=== PATIENT | male | born 1980 | race Two or more races ===

== ENCOUNTER 2017-07-16 11:58 | Inpatient (IN) | payer OTHER ==
[2017-07-16 14:29] VITALS: BMI 25.2
--- NOTE | 2017-07-16 19:33 | HP ---
Admission [facility] Chief Complaint: SEEKING REHAB SERVICES Allergies/Adverse Reactions: Allergies Allergy/AdvReac Type Severity Reaction Status Date / Time No Known Drug Allergies Allergy Verified 07/16/17 16:56 haloperidol [From Haldol] AdvReac Severe EXTRA Verified 07/16/17 16:56 PYRAMIDAL REACTION haloperidol lactate AdvReac Severe EXTRA Verified 07/16/17 16:56 [From Haldol] PYRAMIDAL REACTION History of Present Illness: 36 Y.O. MAN WITH A HISTORY AND ALCOHOL AND CRACK-COCAINE DEPENDENCE IS HERE FOR REHAB SERVICES. HE WAS LAST HERE FOR REHAB IN 2014. LONGEST PERIOD OF DRUG AND ALCOHOL ABSTINENCE HAS BEEN 1 YEAR. PT. IS ENROLLED AT [facility] AND [facility] ON 07/15/17 AT 90MG OF METHADONE (DOSE VERIFIED). Exam Limitations: No Limitations - Ebola screening Have you traveled outside of the country in the last 21 days: No Have you had contact with anyone from an Ebola affected area: No Have you been sick,other than usual withdrawal symptoms: No - Review of Systems Constitutional: Chills, Diaphoresis, Loss of Appetite, Changes in sleep, Unintentional Wgt. Loss EENT: reports: Blurred Vision, Tearing, Nose Congestion Respiratory: reports: No Symptoms reported Cardiac: reports: No Symptoms Reported GI: reports: Diarrhea, Nausea, Vomiting : reports: No Symptoms Reported Musculoskeletal: reports: Back Pain, Neck Pain Integumentary: reports: No Symptoms Reported Neuro: reports: Tremors Endocrine: reports: No Symptoms Reported Hematology: reports: No Symptoms Reported Psychiatric: reports: Orientated x3, Agitated, Anxious, Depressed, other (PTSD, SCHIZOPHRENIA) Other Systems: Reviewed and Negative Patient History - Patient Medical History Hx Anemia: No Hx Asthma: No Hx Chronic Obstructive Pulmonary Disease (COPD): No Hx Cancer: No Hx Cardiac Disorders: No Hx Hypertension: No Hx Hypercholesterolemia: No Hx Pacemaker: No HX Cerebrovascular Accident: No Hx Seizures: No Hx Diabetes: No Hx Gastrointestinal Disorders: No Hx Liver Disease: No Hx Genitourinary Disorders: No Hx Sexually Transmitted Disorders: No Hx Renal Disease (ESRD): No Hx Thyroid Disease: No Hx Human Immunodeficiency Virus (HIV): No (neg 5m ago) Hx Hepatitis C: No Hx Depression: Yes Hx Suicide Attempt: No Hx Bipolar Disorder: No Hx Schizophrenia: Yes - Patient Surgical History Past Surgical History: No Hx Neurologic Surgery: No Hx Cataract Extraction: No Hx Cardiac Surgery: No Hx Lung Surgery: No Hx Breast Surgery: No Hx Breast Biopsy: No Hx Abdominal Surgery: No Hx Appendectomy: No Hx Cholecystectomy: No Hx Genitourinary Surgery: No Hx Section: No Hx Orthopedic Surgery: No Anesthesia Reaction: No - PPD History Previous Implant?: Yes Documented Results: Negative w/proof Implanted On Prior [facility] Admission?: Yes Date: 04/17/15 Results: 0 mm PPD to be Administered?: Yes - Reproductive History Patient is a Female of Child Bearing Age (11 -55 yrs old): No - Smoking Cessation Smoking history: Current every day smoker Have you smoked in the past 12 months: Yes Aproximately how many cigarettes per day: 4 Cigars Per Day: 0 Hx Chewing Tobacco Use: No Initiated information on smoking cessation: Yes 'Breaking Loose' booklet given: 07/16/17 - Substance & Tx. History Hx Alcohol Use: Yes Hx Substance Use: Yes Substance Use Type: Alcohol, Cocaine Hx Substance Use Treatment: Yes (REHAB: 2015) - Substances Abused Crack Route: Smoking Frequency: Daily Amount used: $100 Age of first use: 33 Date of Last Use: 07/16/17 Alcohol-beer Route: Oral Frequency: 3-6 times per week Amount used: 1-2 (12 oz.) Age of first use: 16 Date of Last Use: 07/15/17 Family Disease History - Family Disease History Family History: Denies Admission Physical Exam BHS - Vital Signs Vital Signs: Vital Signs - 24 hr 07/16/17 14:27 Temperature 97.7 F Pulse Rate 63 Respiratory 20 Rate Blood Pressure 121/70 - Physical General Appearance: Yes: Irritable, Sweating, Anxious HEENTM: Yes: Hearing grossly Normal, Normal ENT Inspection, Normocephalic, Normal Voice Respiratory: Yes: Chest Non-Tender, Lungs Clear, Normal Breath Sounds, No Respiratory Distress, No Accessory Muscle Use Neck: Yes: No masses,lesions,Nodules, Trachea in good position Breast: Yes: Breast Exam Deferred Cardiology: Yes: Regular Rhythm, Regular Rate Abdominal: Yes: Normal Bowel Sounds, Non Tender, Flat Genitourinary: Yes: Other (NO COMPLAINTS REPORTED) Back: Yes: Normal Inspection Musculoskeletal: Yes: Back pain, Joint Stiffness, Muscle weakness Extremities: Yes: Normal Capillary Refill, Normal Inspection, Normal Range of Motion, Non-Tender Neurological: Yes: Alert, Normal Mood/Affect, Normal Response Integumentary: Yes: Normal Color, Dry, Warm Lymphatic: Yes: Within Normal Limits - Diagnostic (1) Alcohol dependence with uncomplicated withdrawal Current Visit: Yes Status: Chronic (2) Opioid dependence on agonist therapy Current Visit: Yes Status: Chronic (3) Cocaine dependence Current Visit: Yes Status: Chronic (4) Nicotine dependence Current Visit: Yes Status: Chronic (5) Chronic low back pain Current Visit: Yes Status: Chronic Cleared for Admission [facility] - Detox or Rehab [facility] Level of Care: Observation Bed Claeared for Rehab Admission: Yes [facility] Breath Alcohol Content Breath Alcohol Content: 0 Urine Drug Screen - Results Drug Screen Negative: No Urine Drug Screen Results: YE-Cocaine, MTD-Methadone Inpatient Rehab Admission - Initial Determination Are CD services needed?: Yes Free of communicable disease: Yes Not in need of hospitalization: Yes - Rehab Admission Criteria Previous failed treatment: Yes Poor recovery environment: Yes Comorbidities: Yes Lacks judgement: Yes Patient is meeting Inpatient Rehab admission criteria:: Yes
[2017-07-16] MEDS ORDERED: METHADONE HCL 10 MG TABLET PO ONE (19:45)
[2017-07-16] MEDS ORDERED: ACETAMINOPHEN 325 MG TABLET (FP) PO PRN (19:47)
[2017-07-16] MEDS ORDERED: guaiFENesin/D-METHORPHAN HB 10 ML UNIT-DOSE CUPS PO PRN (19:47)
[2017-07-16] MEDS ORDERED: MAGNESIUM HYDROX 2400MG/30ML ORAL SUSPENSION 30 ML CUP PO PRN (19:47)
[2017-07-16] MEDS ORDERED: IBUPROFEN 400 MG TABLET (FP) PO PRN (19:47)
[2017-07-16] MEDS ORDERED: MAGNESIUM CITRATE 300 ML BOTTLE PO PRN (19:47)
[2017-07-16] MEDS ORDERED: P-EPHED 60MG/TRIPROLIDI 2.5MG TABLET PO PRN (19:47)
[2017-07-16] MEDS ORDERED: hydrOXYzine PAMOATE 50 MG CAPSULE (FP) PO PRN (19:47)
[2017-07-16] MEDS ORDERED: MENTHOL/PHENOL 1 EACH UD MM PRN (19:47)
[2017-07-16] MEDS ORDERED: LOPERAMIDE HCL 2 MG CAPSULE PO PRN (19:47)
[2017-07-16] MEDS ORDERED: NICOTINE POLACRILEX 2 MG GUM BC PRN (19:47)
[2017-07-16] MEDS ORDERED: METHADONE 80 MG, METHADONE 10 MG PO ONE (20:00)
[2017-07-16] MEDS ORDERED: METHADONE HCL 10 MG TABLET ONE (20:44)
[2017-07-16] MEDS ORDERED: TUBERCULIN PPD 5 TU/0.1ML VIAL ID ONE (20:44)
[2017-07-16] MEDS ORDERED: METHADONE HCL 40 MG DISPERSABLE TABLET ONE (20:44)
[2017-07-16] MEDS: METHYL SALICYLATE/MENTHOL OINT 30 GM TUBE TP SCH (21:56)
[2017-07-16] MEDS: QUEtiapine FUMARATE 400 MG TABLET PO SCH (21:57)
[2017-07-16] MEDS: MIRTAZAPINE 30 MG TABLET (FP) PO SCH (21:57)
[2017-07-16] MEDS: THIAMINE HCL 100 MG TABLET (FP) PO SCH (21:58)
[2017-07-16 23:23] LABS: URINE APPEARANCE CLEAR; URINE BILIRUBIN NEGATIVE (NEGATIVE); URINE BLOOD NEGATIVE (NEGATIVE); URINE COLOR DKYELLOW; URINE GLUCOSE (UA) NEGATIVE (NEGATIVE); URINE KETONE NEGATIVE (NEGATIVE); URINE NITRITE NEGATIVE (NEGATIVE); URINE PROTEIN NEGATIVE (NEGATIVE); URINE UROBILINOGEN 4.0 E.U/dl mg/dL (0.2-1.0)
[2017-07-16 23:27] LABS: URINE LEUK ESTERASE 1+ (NEGATIVE)
[2017-07-16 23:28] LABS: EPI CELLS RARE /HPF (FEW); URINE MUCUS MANY
[2017-07-17] MEDS ORDERED: METHADONE HCL 40 MG DISPERSABLE TABLET ONE (04:17)
[2017-07-17] MEDS ORDERED: METHADONE HCL 10 MG TABLET ONE (04:17)
[2017-07-17] MEDS ORDERED: METHADONE HCL 10 MG TABLET PO SCH (06:00)
[2017-07-17] MEDS: METHADONE 80 MG, METHADONE 10 MG PO SCH (10:28)
[2017-07-17] MEDS: OLANZapine 7.5 MG TABLET PO SCH (10:29)
[2017-07-17] MEDS: SERTRALINE HCL 50 MG TABLET (FP) PO SCH (10:29)
[2017-07-17] MEDS: PRENATAL VITAMINS W/ FOLIC ACID TABLET (FP) PO SCH (10:29)
[2017-07-17] MEDS: NICOTINE 14 MG/24 HOURS TOPICAL PATCH TD SCH (10:29)
[2017-07-17] MEDS: METHYL SALICYLATE/MENTHOL OINT 30 GM TUBE TP SCH ×2 (10:32→21:27)
--- NOTE | 2017-07-17 12:19 | EKG ---
Test Reason : Blood Pressure : / mmHG Vent. Rate : 057 BPM Atrial Rate : 057 BPM P-R Int : 180 ms QRS Dur : 102 ms QT Int : 440 ms P-R-T Axes : 051 065 052 degrees QTc Int : 428 ms SINUS BRADYCARDIA OTHERWISE NORMAL ECG NO PREVIOUS ECGS AVAILABLE Confirmed by RONALD SANCHEZ MD ([id number]) on 07/17/2017 12:19:45 PM Referred By: Confirmed By:RONALD SANCHEZ MD
[2017-07-17 12:44] LABS: HEMOGLOBIN 12.7 GM/dL (11.7-16.9); MCH 29.7 pg (25.7-33.7); MCHC 32.6 g/dl (32.0-35.9); MEAN CELL VOLUME 91.1 fl (80-96); PLATELET COUNT 281 K/MM3 (134-434); RBC 4.28 M/mm3 (4.00-5.60); RDW 14.4 % (11.9-15.9); WHITE BLOOD COUNT 6.6 K/mm3 (4.0-10.0)
[2017-07-17 13:01] LABS: ALBUMIN 3.1 g/dl (3.4-5.0); ANION GAP 6 (8-16); BILIRUBIN,TOTAL 0.4 mg/dL (0.2-1.0); BLOOD UREA NITROGEN 16 mg/dL (7-18); CALCIUM 7.9 mg/dL (8.5-10.1); CHLORIDE 107 mmol/L (98-107); CO2 29 mmol/L (21-32); CREATININE 1.1 mg/dL (0.7-1.3); GLUCOSE,RANDOM 81 mg/dL (74-106); POTASSIUM 4.2 mmol/L (3.5-5.1); SGOT/AST 15 U/L (15-37); SGPT/ALT 25 U/L (12-78); SODIUM 142 mmol/L (136-145); TOT PROT 6.1 g/dl (6.4-8.2)
[2017-07-17 13:02] LABS: ALK PHOS 43 U/L (45-117)
[2017-07-17] MEDS: MIRTAZAPINE 30 MG TABLET (FP) PO SCH (21:26)
[2017-07-17] MEDS: THIAMINE HCL 100 MG TABLET (FP) PO SCH (21:26)
[2017-07-17] MEDS: QUEtiapine FUMARATE 400 MG TABLET PO SCH (21:27)
[2017-07-18] MEDS ORDERED: METHADONE HCL 10 MG TABLET ONE (04:17)
[2017-07-18] MEDS ORDERED: METHADONE HCL 40 MG DISPERSABLE TABLET ONE (04:18)
[2017-07-18] MEDS: METHADONE 80 MG, METHADONE 10 MG PO SCH (06:12)
[2017-07-18] MEDS: OLANZapine 7.5 MG TABLET PO SCH (10:11)
[2017-07-18] MEDS: NICOTINE 14 MG/24 HOURS TOPICAL PATCH TD SCH (10:11)
[2017-07-18] MEDS: SERTRALINE HCL 50 MG TABLET (FP) PO SCH (10:12)
[2017-07-18] MEDS: PRENATAL VITAMINS W/ FOLIC ACID TABLET (FP) PO SCH (10:12)
[2017-07-18] MEDS: METHYL SALICYLATE/MENTHOL OINT 30 GM TUBE TP SCH ×2 (10:12→22:24)
[2017-07-18] MEDS ORDERED: PT OWN MED DRAWER 7, Y5N ONE (19:27)
[2017-07-18] MEDS: MIRTAZAPINE 30 MG TABLET (FP) PO SCH (22:23)
[2017-07-18] MEDS: THIAMINE HCL 100 MG TABLET (FP) PO SCH (22:24)
[2017-07-18] MEDS: QUEtiapine FUMARATE 400 MG TABLET PO SCH (22:24)
[2017-07-19] MEDS ORDERED: METHADONE HCL 40 MG DISPERSABLE TABLET ONE (04:14)
[2017-07-19] MEDS ORDERED: METHADONE HCL 10 MG TABLET ONE (04:14)
[2017-07-19] MEDS: METHADONE 80 MG, METHADONE 10 MG PO SCH (06:14)
[2017-07-19] MEDS: OLANZapine 7.5 MG TABLET PO SCH (10:18)
[2017-07-19] MEDS: SERTRALINE HCL 50 MG TABLET (FP) PO SCH (10:18)
[2017-07-19] MEDS: PRENATAL VITAMINS W/ FOLIC ACID TABLET (FP) PO SCH (10:18)
[2017-07-19] MEDS: NICOTINE 14 MG/24 HOURS TOPICAL PATCH TD SCH (10:18)
[2017-07-19] MEDS: METHYL SALICYLATE/MENTHOL OINT 30 GM TUBE TP SCH ×2 (10:21→21:32)
--- NOTE | 2017-07-19 14:48 | HP ---
Psychiatrist Admission - Data Date of interview: 07/19/17 Admission source: [facility] Identifying data: Pt. is a 36 year single male, father of three, and on disability. This is patient's second admission to rehab. Pt. admitted to [address] [place] [address] inpatient rehab for opiate and cocaine dependence. Psychiatric History: Pt. reports psychiatric hospitalization at [facility] approximately 4 weeks ago. Diagnosis of paranoid schizophrenia. Pt. is a poor historian. Pt reports getting his psychiatric medications from [facility]. Pt is currently prescribed seroquel 400mg qhs, zyprexa 7.5mg PO daily, Mirtzapine 30mg qhs and zoloft 100mg po daily. Pt. denies h/o suicide attempts. Pt. states that when he decompensates he begins to believe that the cloth carrier are after him and he carries a knife on him. Currently, no paranoia or psychosis noted. Physical/Sexual Abuse/Trauma History: Denies. Vital Signs: Vital Signs - 24 hr 07/19/17 07/19/17 07/19/17 00:30 03:30 07:05 Temperature 98.3 F Pulse Rate 69 Respiratory 16 16 18 Rate Blood Pressure 107/70 Allergies/Adverse Reactions: Allergies Allergy/AdvReac Type Severity Reaction Status Date / Time No Known Drug Allergies Allergy Verified 07/16/17 16:56 haloperidol [From Haldol] AdvReac Severe EXTRA Verified 07/16/17 16:56 PYRAMIDAL REACTION haloperidol lactate AdvReac Severe EXTRA Verified 07/16/17 16:56 [From Haldol] PYRAMIDAL REACTION Date of last physical exam: 07/16/17 Concur with the findings of this exam: Yes - Substance Abuse/Tx History Hx Alcohol Use: Yes Hx Substance Use: Yes Substance Use Type: Cocaine, Heroin Hx Substance Use Treatment: Yes ([facility] rehab at [address]) Mental Status Exam - Mental Status Exam Alert and Oriented to: Time, Place, Person Cognitive Function: Fair Patient Appearance: Well Groomed Mood: Withdrawn Affect: Mood Congruent Patient Behavior: Fatigued Speech Pattern: Delayed Voice Loudness: Moderately Soft/Quiet Thought Process: Goal Oriented Thought Disorder: Not Present Hallucinations: Denies Suicidal Ideation: Denies Homicidal Ideation: Denies Insight/Judgement: Poor Sleep: Well Appetite: Good Muscle strength/Tone: Normal Gait/Station: Normal Psychiatric Findings - Problem List ([place] 1, 2,3) (1) Opiate dependence Current Visit: Yes Status: Acute (2) Cocaine dependence Current Visit: Yes Status: Acute (3) Schizophrenia, paranoid type Current Visit: Yes Status: Chronic - Initial Treatment Plan Initial Treatment Plan: Psychoeducation provided. Rehab in progress. Pt. to continue on current medications of seroquel 400mg qhs, Zyprexa 7.5mg Po daily + and mirtzapine 30mg qhs, and zoloft 100mg PO daily. Benefits and side effects discussed. Verbal consent given. Will continue to monitor.
[2017-07-19] MEDS: LIDOCAINE 5% TOPICAL PATCH TP SCH (15:02)
[2017-07-19] MEDS: THIAMINE HCL 100 MG TABLET (FP) PO SCH (21:30)
[2017-07-19] MEDS: MIRTAZAPINE 30 MG TABLET (FP) PO SCH (21:30)
[2017-07-19] MEDS: QUEtiapine FUMARATE 400 MG TABLET PO SCH (21:31)
[2017-07-19] MEDS: TOLNAFTATE 1% CREAM 15 GM TUBE TP SCH (21:31)
[2017-07-19] MEDS: LIDOCAINE PATCH REMOVAL MC SCH (21:32)
[2017-07-20] MEDS ORDERED: METHADONE HCL 10 MG TABLET ONE (04:28)
[2017-07-20] MEDS ORDERED: METHADONE HCL 40 MG DISPERSABLE TABLET ONE (04:29)
[2017-07-20] MEDS: METHADONE 80 MG, METHADONE 10 MG PO SCH (06:14)
[2017-07-20] MEDS: NICOTINE 14 MG/24 HOURS TOPICAL PATCH TD SCH (10:10)
[2017-07-20] MEDS: PRENATAL VITAMINS W/ FOLIC ACID TABLET (FP) PO SCH (10:10)
[2017-07-20] MEDS: SERTRALINE HCL 50 MG TABLET (FP) PO SCH (10:10)
[2017-07-20] MEDS: OLANZapine 7.5 MG TABLET PO SCH (10:10)
[2017-07-20] MEDS: TOLNAFTATE 1% CREAM 15 GM TUBE TP SCH ×2 (10:11→21:23)
[2017-07-20] MEDS: METHYL SALICYLATE/MENTHOL OINT 30 GM TUBE TP SCH ×2 (10:25→21:22)
[2017-07-20] MEDS: LIDOCAINE 5% TOPICAL PATCH TP SCH (10:26)
[2017-07-20] MEDS: MIRTAZAPINE 30 MG TABLET (FP) PO SCH (21:22)
[2017-07-20] MEDS: LIDOCAINE PATCH REMOVAL MC SCH (21:22)
[2017-07-20] MEDS: THIAMINE HCL 100 MG TABLET (FP) PO SCH (21:22)
[2017-07-20] MEDS: QUEtiapine FUMARATE 400 MG TABLET PO SCH (21:23)
[2017-07-21] MEDS ORDERED: METHADONE HCL 40 MG DISPERSABLE TABLET ONE (03:50)
[2017-07-21] MEDS ORDERED: METHADONE HCL 10 MG TABLET ONE (03:50)
[2017-07-21] MEDS: METHADONE 80 MG, METHADONE 10 MG PO SCH (06:23)
[2017-07-21] MEDS: SERTRALINE HCL 50 MG TABLET (FP) PO SCH (10:32)
[2017-07-21] MEDS: OLANZapine 7.5 MG TABLET PO SCH (10:32)
[2017-07-21] MEDS: PRENATAL VITAMINS W/ FOLIC ACID TABLET (FP) PO SCH (10:33)
[2017-07-21] MEDS: LIDOCAINE 5% TOPICAL PATCH TP SCH (10:33)
[2017-07-21] MEDS: NICOTINE 14 MG/24 HOURS TOPICAL PATCH TD SCH (10:33)
[2017-07-21] MEDS: METHYL SALICYLATE/MENTHOL OINT 30 GM TUBE TP SCH ×2 (10:36→21:44)
[2017-07-21] MEDS: TOLNAFTATE 1% CREAM 15 GM TUBE TP SCH ×2 (10:37→21:43)
--- NOTE | 2017-07-21 15:01 | PN ---
Psychiatric Progress Note Vital Signs: Vital Signs Period Temp Pulse Resp BP Sys/Calloway Pulse Ox Last 24 Hr 98.5 F 70 18-18 101/63 Date of Session: 07/21/17 Chief Complaint:: " i want to take my depakote." HPI: Pt. admitted to [facility] inpatient rehab for alcohol and cocaine dependence. ROS: Unremarkable. Current Medications: Active Medications Generic Name Dose Route Start Last Admin Trade Name Freq PRN Reason Stop Dose Admin Acetaminophen 650 mg 07/16/17 19:47 Tylenol - PO Q4H PRN FEVER Al Hydroxide/Mg Hydroxide 30 ml 07/16/17 19:47 Mylanta Oral Suspension - PO Q6H PRN DYSPEPSIA Eucalyptus/Menthol/Phenol/Sorbitol 1 each 07/16/17 19:47 Cepastat Lozenge - MM Q4H PRN SORE THROAT Guaifenesin 10 ml 07/16/17 19:47 Robitussin Dm - PO Q6H PRN COUGH Hydroxyzine Pamoate 50 mg 07/16/17 19:47 Vistaril - PO Q4H PRN AGITATION Ibuprofen 400 mg 07/16/17 19:47 07/16/17 21:14 Motrin - PO 400 mg Q6H PRN Administration Pain level 4-6 Lidocaine 1 patch 07/19/17 14:30 07/21/17 10:33 Lidoderm Patch - TP 1 patch DAILY KIKE Administration Loperamide HCl 4 mg 07/16/17 19:47 Imodium - PO Q6H PRN DIARRHEA Magnesium Citrate 300 ml 07/16/17 19:47 Citroma - PO Q48H PRN CONSTIPATION Magnesium Hydroxide 30 ml 07/16/17 19:47 Milk Of Magnesia - PO DAILY PRN CONSTIPATION Methadone HCl 80 mg/ Methadone 90 mg 07/17/17 06:00 07/21/17 06:23 HCl 10 mg PO 90 mg DAILY@0600 KIKE Administration Methyl Salicylate 1 applic 07/16/17 22:00 07/21/17 10:36 Reginald-Baker - TP Not Given BID KIKE Mirtazapine 30 mg 07/16/17 22:00 07/20/17 21:22 Remeron - PO 30 mg HS KIKE Administration Miscellaneous 1 each 07/19/17 22:00 07/20/17 21:22 Lidoderm Patch Removal MC 1 each DAILY@2200 KIKE Administration Nicotine 14 mg 07/17/17 10:00 07/21/17 10:33 Nicoderm Patch - TD 14 mg DAILY KIKE Administration Nicotine Polacrilex 2 mg 07/16/17 19:47 Nicorette Gum - BC Q2H PRN NICOTINE REPLACEMENT RX Olanzapine 7.5 mg 07/17/17 10:00 07/21/17 10:32 Zyprexa - PO 7.5 mg DAILY KIKE Administration Multivit/Folic Acid/Iron 1 tab 07/17/17 10:00 07/21/17 10:33 Vitamins (Sjr) - PO 1 tab DAILY KIKE Administration Pseudoephedrine/Triprolidine 1 combo 07/16/17 19:47 Actifed - PO TID PRN NASAL CONGESTION Quetiapine Fumarate 400 mg 07/16/17 22:00 07/20/17 21:23 Seroquel - PO 400 mg HS KIKE Administration Sertraline HCl 100 mg 07/17/17 10:00 07/21/17 10:32 Zoloft - PO 100 mg DAILY KIKE Administration Thiamine HCl 100 mg 07/16/17 22:00 07/20/17 21:22 Vitamin B1 - PO 100 mg HS KIKE Administration Tolnaftate 1 applic 07/19/17 22:00 07/21/17 10:37 Tinactin 1% Cream - TP 1 applic BID KIKE Administration Medication(s) Change(s): Discontinued zoloft 100m. Decrease Seroquel 400mg to 200mg. Restart Depakote 500mg BID. Increase zyprexa 7.5mg to 10mg Current Side Effect: No Lab tests ordered: No Lab tests reviewed: Yes Provider note:: Case discussed with Dr. Tirado. Previous notes of Dr. Deras , Dr. Case and Dr. Lanier read and appreciated. Contact with pharmacy established at [facility] at . As per pharmacist, patient's current medication are Mirtzapine 30mg + Zyprexa 20mg + Depakote 500mg qam and 1000mg qhs. Medications mentioned above were picked up on . Zoloft 100mg to be discontinued. Reports last taking zoloft approximatlely 5 months ago while in the ED. Seroquel 400mg to be decreased to 200mg qhs and zyprexa to be increased from 7.5mg to 10mg. Will start zyprexa 10mg qhs on with the plan to titrate zyprexa to 20mg qhs. Patient to resume depakote 500mg BID. Valproic level ordered for the morning. Pt. agreeable with plan. Benefits and side effects discussed. Verbal consent given. Will continue to monitor. Total face to face time:: 35 Mental Status Exam - Mental Status Exam Alert and Oriented to: Time, Place, Person Cognitive Function: Fair Patient Appearance: Well Groomed Mood: Euthymic Affect: Mood Congruent Patient Behavior: Cooperative Speech Pattern: Delayed Voice Loudness: Normal Thought Process: Goal Oriented Thought Disorder: Not Present Hallucinations: Denies Suicidal Ideation: Denies Homicidal Ideation: Denies Insight/Judgement: Poor Sleep: Fair Appetite: Good Muscle strength/Tone: Normal Gait/Station: Normal Psychiatric Treatment Plan - Problem List (1) Opiate dependence Current Visit: Yes (2) Cocaine dependence Current Visit: Yes (3) Schizophrenia, paranoid type Current Visit: Yes
[2017-07-21] MEDS: DIVALPROEX SODIUM 500 MG TABLET E.C. PO SCH (21:42)
[2017-07-21] MEDS: THIAMINE HCL 100 MG TABLET (FP) PO SCH (21:42)
[2017-07-21] MEDS: MIRTAZAPINE 30 MG TABLET (FP) PO SCH (21:42)
[2017-07-21] MEDS: QUEtiapine FUMARATE 200 MG TABLET PO SCH (21:42)
[2017-07-21] MEDS: LIDOCAINE PATCH REMOVAL MC SCH (21:43)
[2017-07-22] MEDS ORDERED: METHADONE HCL 10 MG TABLET ONE (03:58)
[2017-07-22] MEDS ORDERED: METHADONE HCL 40 MG DISPERSABLE TABLET ONE (03:59)
[2017-07-22] MEDS: METHADONE 80 MG, METHADONE 10 MG PO SCH (06:21)
[2017-07-22] MEDS: NICOTINE 14 MG/24 HOURS TOPICAL PATCH TD SCH (10:00)
[2017-07-22] MEDS: PRENATAL VITAMINS W/ FOLIC ACID TABLET (FP) PO SCH (10:00)
[2017-07-22] MEDS: LIDOCAINE 5% TOPICAL PATCH TP SCH (10:00)
[2017-07-22] MEDS: DIVALPROEX SODIUM 500 MG TABLET E.C. PO SCH ×2 (10:00→21:09)
[2017-07-22] MEDS: TOLNAFTATE 1% CREAM 15 GM TUBE TP SCH ×2 (10:01→22:01)
[2017-07-22] MEDS: METHYL SALICYLATE/MENTHOL OINT 30 GM TUBE TP SCH ×2 (10:01→21:10)
[2017-07-22] MEDS: MIRTAZAPINE 30 MG TABLET (FP) PO SCH (21:09)
[2017-07-22] MEDS: THIAMINE HCL 100 MG TABLET (FP) PO SCH (21:09)
[2017-07-22] MEDS: QUEtiapine FUMARATE 200 MG TABLET PO SCH (21:09)
[2017-07-22] MEDS: LIDOCAINE PATCH REMOVAL MC SCH (21:10)
[2017-07-22] MEDS ORDERED: OLANZapine 10 MG TABLET PO SCH (22:00)
[2017-07-23] MEDS ORDERED: METHADONE HCL 40 MG DISPERSABLE TABLET ONE (04:14)
[2017-07-23] MEDS ORDERED: METHADONE HCL 10 MG TABLET ONE (04:14)
[2017-07-23] MEDS ORDERED: METHADONE HCL 40 MG DISPERSABLE TABLET PO SCH (06:00)
[2017-07-23] MEDS: METHADONE 80 MG, METHADONE 10 MG PO SCH (06:34)
[2017-07-23] MEDS: NICOTINE 14 MG/24 HOURS TOPICAL PATCH TD SCH (10:11)
[2017-07-23] MEDS: DIVALPROEX SODIUM 500 MG TABLET E.C. PO SCH ×2 (10:11→21:20)
[2017-07-23] MEDS: PRENATAL VITAMINS W/ FOLIC ACID TABLET (FP) PO SCH (10:11)
[2017-07-23] MEDS: LIDOCAINE 5% TOPICAL PATCH TP SCH (10:12)
[2017-07-23] MEDS: METHYL SALICYLATE/MENTHOL OINT 30 GM TUBE TP SCH ×2 (10:15→21:21)
[2017-07-23] MEDS: TOLNAFTATE 1% CREAM 15 GM TUBE TP SCH ×2 (10:15→21:22)
[2017-07-23] MEDS: MAG HYDROX/AL HYDROX/SIMETH 30 ML UNIT-DOSE CUP PO PRN (14:32)
--- NOTE | 2017-07-23 17:08 | PN ---
[facility] Progress Note Note: Spoke to patient bedside about titrating zyprexa 10mg to 15mg qhs and depakote 500mg BID to 500 PO daily and 1000mg qhs. Before admission to rehab, patient was prescribed zyprexa 20mg and depakote 500mg PO daily and 1000qhs. Benefits and side effects discussed. Pt. agreeable with plan. Verbal consent given.Will order zyprexa 15mg qhs and Depakote 500mg PO daily and 1000mg qhs. Will continue to monitor.
[2017-07-23] MEDS: MIRTAZAPINE 30 MG TABLET (FP) PO SCH (21:20)
[2017-07-23] MEDS: THIAMINE HCL 100 MG TABLET (FP) PO SCH (21:20)
[2017-07-23] MEDS: QUEtiapine FUMARATE 200 MG TABLET PO SCH (21:20)
[2017-07-23] MEDS: OLANZapine 7.5 MG TABLET PO SCH (21:20)
[2017-07-23] MEDS: LIDOCAINE PATCH REMOVAL MC SCH (21:21)
[2017-07-24] MEDS ORDERED: METHADONE HCL 40 MG DISPERSABLE TABLET ONE (03:26)
[2017-07-24] MEDS ORDERED: METHADONE HCL 10 MG TABLET ONE (03:26)
[2017-07-24] MEDS: METHADONE 80 MG, METHADONE 10 MG PO SCH (06:21)
[2017-07-24] MEDS ORDERED: PT OWN MED DRAWER 7, Y5N ONE ×2 (08:42→19:32)
[2017-07-24] MEDS: NICOTINE 14 MG/24 HOURS TOPICAL PATCH TD SCH (10:02)
[2017-07-24] MEDS: TOLNAFTATE 1% CREAM 15 GM TUBE TP SCH ×2 (10:02→22:16)
[2017-07-24] MEDS: PRENATAL VITAMINS W/ FOLIC ACID TABLET (FP) PO SCH (10:02)
[2017-07-24] MEDS: DIVALPROEX SODIUM 500 MG TABLET E.C. PO SCH ×2 (10:02→21:02)
[2017-07-24] MEDS: METHYL SALICYLATE/MENTHOL OINT 30 GM TUBE TP SCH ×2 (10:02→22:15)
[2017-07-24] MEDS: LIDOCAINE 5% TOPICAL PATCH TP SCH (10:02)
[2017-07-24] MEDS: MIRTAZAPINE 30 MG TABLET (FP) PO SCH (21:02)
[2017-07-24] MEDS: QUEtiapine FUMARATE 200 MG TABLET PO SCH (21:02)
[2017-07-24] MEDS: THIAMINE HCL 100 MG TABLET (FP) PO SCH (21:02)
[2017-07-24] MEDS: OLANZapine 7.5 MG TABLET PO SCH (21:03)
[2017-07-24] MEDS: LIDOCAINE PATCH REMOVAL MC SCH (22:16)
[2017-07-25] MEDS ORDERED: METHADONE HCL 40 MG DISPERSABLE TABLET ONE (05:10)
[2017-07-25] MEDS ORDERED: METHADONE HCL 10 MG TABLET ONE (05:10)
[2017-07-25] MEDS: METHADONE 80 MG, METHADONE 10 MG PO SCH (06:06)
[2017-07-25] MEDS ORDERED: PT OWN MED DRAWER 7, Y5N ONE (08:36)
[2017-07-25] MEDS: NICOTINE 14 MG/24 HOURS TOPICAL PATCH TD SCH (09:45)
[2017-07-25] MEDS: DIVALPROEX SODIUM 500 MG TABLET E.C. PO SCH ×2 (09:45→21:52)
[2017-07-25] MEDS: PRENATAL VITAMINS W/ FOLIC ACID TABLET (FP) PO SCH (09:45)
[2017-07-25] MEDS: LIDOCAINE 5% TOPICAL PATCH TP SCH (09:45)
[2017-07-25] MEDS: METHYL SALICYLATE/MENTHOL OINT 30 GM TUBE TP SCH ×2 (09:45→21:52)
[2017-07-25] MEDS: TOLNAFTATE 1% CREAM 15 GM TUBE TP SCH ×2 (09:45→21:53)
[2017-07-25] MEDS: MAG HYDROX/AL HYDROX/SIMETH 30 ML UNIT-DOSE CUP PO PRN (10:53)
[2017-07-25] MEDS: PANTOPRAZOLE 40 MG TABLET (FP) PO SCH (13:27)
[2017-07-25] MEDS: CYCLOBENZAPRINE HCL 10 MG TABLET (FP) PO SCH ×2 (14:55→21:51)
[2017-07-25] MEDS: MIRTAZAPINE 30 MG TABLET (FP) PO SCH (21:51)
[2017-07-25] MEDS: THIAMINE HCL 100 MG TABLET (FP) PO SCH (21:51)
[2017-07-25] MEDS: QUEtiapine FUMARATE 200 MG TABLET PO SCH (21:51)
[2017-07-25] MEDS: OLANZapine 7.5 MG TABLET PO SCH (21:52)
[2017-07-25] MEDS: LIDOCAINE PATCH REMOVAL MC SCH (21:53)
[2017-07-26] MEDS ORDERED: METHADONE HCL 10 MG TABLET ONE (03:04)
[2017-07-26] MEDS ORDERED: METHADONE HCL 40 MG DISPERSABLE TABLET ONE (03:04)
[2017-07-26] MEDS: CYCLOBENZAPRINE HCL 10 MG TABLET (FP) PO SCH ×3 (06:11→21:33)
[2017-07-26] MEDS: METHADONE 80 MG, METHADONE 10 MG PO SCH (06:11)
[2017-07-26] MEDS ORDERED: ARTIFICIAL TEARS (POLYVINYL ALCOHOL 1.4%) OPTH DROPS OU PRN (08:41)
--- NOTE | 2017-07-26 08:45 | PN ---
S Progress Note (SOAP) Subjective: my eyes are dry. Objective: 07/26/17 08:44 Vital Signs Temperature 97.5 F L 07/26/17 06:51 Pulse Rate 79 07/26/17 06:51 Respiratory Rate 18 07/26/17 06:51 Blood Pressure 105/62 07/26/17 06:51 O2 Sat by Pulse Oximetry (%) aaox3 ambulating no distress Assessment: 07/26/17 08:44 dry eyes noted Plan: artificial tears ordered pen
[2017-07-26] MEDS: PANTOPRAZOLE 40 MG TABLET (FP) PO SCH (10:17)
[2017-07-26] MEDS: DIVALPROEX SODIUM 500 MG TABLET E.C. PO SCH ×2 (10:17→21:33)
[2017-07-26] MEDS: NICOTINE 14 MG/24 HOURS TOPICAL PATCH TD SCH (10:18)
[2017-07-26] MEDS: PRENATAL VITAMINS W/ FOLIC ACID TABLET (FP) PO SCH (10:18)
[2017-07-26] MEDS: LIDOCAINE 5% TOPICAL PATCH TP SCH (10:18)
[2017-07-26] MEDS: METHYL SALICYLATE/MENTHOL OINT 30 GM TUBE TP SCH ×2 (10:20→21:35)
[2017-07-26] MEDS: TOLNAFTATE 1% CREAM 15 GM TUBE TP SCH ×2 (10:21→21:35)
[2017-07-26] MEDS ORDERED: PT OWN MED DRAWER 7, Y5N ONE (10:28)
[2017-07-26] MEDS: MAG HYDROX/AL HYDROX/SIMETH 30 ML UNIT-DOSE CUP PO PRN ×2 (15:25→21:32)
[2017-07-26] MEDS: THIAMINE HCL 100 MG TABLET (FP) PO SCH (21:32)
[2017-07-26] MEDS: OLANZapine 7.5 MG TABLET PO SCH (21:32)
[2017-07-26] MEDS: MIRTAZAPINE 30 MG TABLET (FP) PO SCH (21:33)
[2017-07-26] MEDS: QUEtiapine FUMARATE 200 MG TABLET PO SCH (21:33)
[2017-07-26] MEDS: LIDOCAINE PATCH REMOVAL MC SCH (21:35)
[2017-07-27] MEDS ORDERED: METHADONE HCL 40 MG DISPERSABLE TABLET ONE (03:45)
[2017-07-27] MEDS ORDERED: METHADONE HCL 10 MG TABLET ONE (03:45)
[2017-07-27] MEDS: CYCLOBENZAPRINE HCL 10 MG TABLET (FP) PO SCH ×3 (06:17→21:04)
[2017-07-27] MEDS: METHADONE 80 MG, METHADONE 10 MG PO SCH (06:18)
[2017-07-27] MEDS: NICOTINE 14 MG/24 HOURS TOPICAL PATCH TD SCH (10:04)
[2017-07-27] MEDS: PRENATAL VITAMINS W/ FOLIC ACID TABLET (FP) PO SCH (10:04)
[2017-07-27] MEDS: METHYL SALICYLATE/MENTHOL OINT 30 GM TUBE TP SCH ×2 (10:04→21:06)
[2017-07-27] MEDS: LIDOCAINE 5% TOPICAL PATCH TP SCH (10:04)
[2017-07-27] MEDS: DIVALPROEX SODIUM 500 MG TABLET E.C. PO SCH ×2 (10:04→21:04)
[2017-07-27] MEDS: PANTOPRAZOLE 40 MG TABLET (FP) PO SCH (10:04)
[2017-07-27] MEDS: TOLNAFTATE 1% CREAM 15 GM TUBE TP SCH ×2 (10:05→21:06)
[2017-07-27] MEDS ORDERED: METHADONE HCL 40 MG DISPERSABLE TABLET PO SCH (12:34)
[2017-07-27] MEDS: MAG HYDROX/AL HYDROX/SIMETH 30 ML UNIT-DOSE CUP PO PRN ×2 (14:51→21:05)
[2017-07-27] MEDS: THIAMINE HCL 100 MG TABLET (FP) PO SCH (21:04)
[2017-07-27] MEDS: QUEtiapine FUMARATE 200 MG TABLET PO SCH (21:04)
[2017-07-27] MEDS: MIRTAZAPINE 30 MG TABLET (FP) PO SCH (21:04)
[2017-07-27] MEDS: LIDOCAINE PATCH REMOVAL MC SCH (21:05)
[2017-07-27] MEDS: OLANZapine 7.5 MG TABLET PO SCH (21:06)
[2017-07-28] MEDS ORDERED: METHADONE HCL 10 MG TABLET ONE (04:58)
[2017-07-28] MEDS ORDERED: METHADONE HCL 40 MG DISPERSABLE TABLET ONE (04:58)
[2017-07-28] MEDS: METHADONE 80 MG, METHADONE 20 MG PO SCH (06:39)
[2017-07-28] MEDS: CYCLOBENZAPRINE HCL 10 MG TABLET (FP) PO SCH ×3 (06:39→21:05)
[2017-07-28] MEDS: NICOTINE 14 MG/24 HOURS TOPICAL PATCH TD SCH (10:08)
[2017-07-28] MEDS: LIDOCAINE 5% TOPICAL PATCH TP SCH (10:09)
[2017-07-28] MEDS: PANTOPRAZOLE 40 MG TABLET (FP) PO SCH (10:09)
[2017-07-28] MEDS: DIVALPROEX SODIUM 500 MG TABLET E.C. PO SCH ×2 (10:09→21:05)
[2017-07-28] MEDS: PRENATAL VITAMINS W/ FOLIC ACID TABLET (FP) PO SCH (10:09)
[2017-07-28] MEDS: METHYL SALICYLATE/MENTHOL OINT 30 GM TUBE TP SCH ×2 (10:10→22:14)
[2017-07-28] MEDS: TOLNAFTATE 1% CREAM 15 GM TUBE TP SCH ×2 (10:10→21:07)
--- NOTE | 2017-07-28 10:14 | PN ---
Psychiatric Progress Note Vital Signs: Vital Signs Period Temp Pulse Resp BP Sys/Calloway Pulse Ox Last 24 Hr 97.5 F 84 18-20 114/80 Date of Session: 07/28/17 Chief Complaint:: Discharge Note HPI: Patient addressing Opoid and Cocaine Dependence comorbid with Nicotine Dependence and Schizoaffective Disorder Current Medications: Active Medications Generic Name Dose Route Start Last Admin Trade Name Freq PRN Reason Stop Dose Admin Acetaminophen 650 mg 07/16/17 19:47 Tylenol - PO Q4H PRN FEVER Al Hydroxide/Mg Hydroxide 30 ml 07/16/17 19:47 07/27/17 21:05 Mylanta Oral Suspension - PO 30 ml Q6H PRN Administration DYSPEPSIA Artificial Tears 1 drop 07/26/17 08:41 Artificial Tears OU QID PRN DRY EYES Cyclobenzaprine HCl 10 mg 07/25/17 14:00 07/28/17 06:39 Flexeril - PO 10 mg TID KIKE Administration Divalproex Sodium 500 mg 07/24/17 10:00 07/27/17 10:04 Depakote - PO 500 mg DAILY KIKE Administration Divalproex Sodium 1,000 mg 07/23/17 22:00 07/27/17 21:04 Depakote - PO 1,000 mg HS KIKE Administration Eucalyptus/Menthol/Phenol/Sorbitol 1 each 07/16/17 19:47 Cepastat Lozenge - MM Q4H PRN SORE THROAT Guaifenesin 10 ml 07/16/17 19:47 Robitussin Dm - PO Q6H PRN COUGH Hydroxyzine Pamoate 50 mg 07/16/17 19:47 07/25/17 09:46 Vistaril - PO 50 mg Q4H PRN Administration AGITATION Lidocaine 1 patch 07/19/17 14:30 07/27/17 10:04 Lidoderm Patch - TP 1 patch DAILY KIKE Administration Loperamide HCl 4 mg 07/16/17 19:47 Imodium - PO Q6H PRN DIARRHEA Magnesium Citrate 300 ml 07/16/17 19:47 Citroma - PO Q48H PRN CONSTIPATION Magnesium Hydroxide 30 ml 07/16/17 19:47 Milk Of Magnesia - PO DAILY PRN CONSTIPATION Methadone HCl 80 mg/ Methadone 100 mg 07/28/17 06:00 07/28/17 06:39 HCl 20 mg PO 100 mg DAILY@0600 KIKE Administration Methyl Salicylate 1 applic 07/16/17 22:00 07/27/17 21:06 Reginald-Baker - TP Not Given BID KIKE Mirtazapine 30 mg 07/16/17 22:00 07/27/17 21:04 Remeron - PO 30 mg HS KIKE Administration Miscellaneous 1 each 07/19/17 22:00 07/27/17 21:05 Lidoderm Patch Removal MC 1 each DAILY@2200 KIKE Administration Nicotine 14 mg 07/17/17 10:00 07/27/17 10:04 Nicoderm Patch - TD 14 mg DAILY KIKE Administration Nicotine Polacrilex 2 mg 07/16/17 19:47 Nicorette Gum - BC Q2H PRN NICOTINE REPLACEMENT RX Olanzapine 15 mg 07/23/17 22:00 07/27/17 21:06 Zyprexa - PO 15 mg HS KIKE Administration Pantoprazole Sodium 40 mg 07/25/17 12:30 07/27/17 10:04 Protonix - PO 40 mg DAILY KIKE Administration Multivit/Folic Acid/Iron 1 tab 07/17/17 10:00 07/27/17 10:04 Vitamins (Sjr) - PO 1 tab DAILY KIKE Administration Pseudoephedrine/Triprolidine 1 combo 07/16/17 19:47 Actifed - PO TID PRN NASAL CONGESTION Quetiapine Fumarate 200 mg 07/21/17 22:00 07/27/17 21:04 Seroquel - PO 200 mg HS KIKE Administration Thiamine HCl 100 mg 07/16/17 22:00 07/27/17 21:04 Vitamin B1 - PO 100 mg HS KIKE Administration Tolnaftate 1 applic 07/19/17 22:00 07/27/17 21:06 Tinactin 1% Cream - TP 1 applic BID KIKE Administration Current Side Effect: No Lab tests ordered: Yes Lab tests reviewed: Yes Provider note:: Patient will complete this program on 07/29/17. He has met his treatment goals and will continue to address his issues in an outpatient treatment in [place] where he plans to relocate. He responded well to following medications: Zoloft 100 mg po daily, Seroquel 200 mg po BID, Depakote 500 mg daily & 1000 mg HS, Remeron 30 mg po HS. Scripts for these medications will be electronically transmitted to [facility] at [address] [place] [id number]. He is stable for discharge on 07/29.18 Total face to face time:: 35 Mental Status Exam - Mental Status Exam Alert and Oriented to: Time, Place, Person Cognitive Function: Fair Patient Appearance: Well Groomed Mood: Hopeful, Euthymic Affect: Appropriate Patient Behavior: Cooperative Speech Pattern: Clear Voice Loudness: Normal Thought Process: Intact, Goal Oriented Thought Disorder: Not Present Hallucinations: Denies Suicidal Ideation: Denies Homicidal Ideation: Denies Insight/Judgement: Fair Sleep: Fair Appetite: Good Muscle strength/Tone: Normal Gait/Station: Normal Psychiatric Treatment Plan - Problem List (1) Opiate dependence Current Visit: Yes (2) Cocaine dependence Current Visit: Yes (3) Nicotine dependence Current Visit: Yes (4) Schizophrenia, paranoid type Current Visit: Yes Initial treatment plan: Patient will be discharged tomorrow and relocate to [place] where according to him he will enroll in an outpatient treatment program
[2017-07-28] MEDS: MAG HYDROX/AL HYDROX/SIMETH 30 ML UNIT-DOSE CUP PO PRN ×2 (13:04→21:06)
[2017-07-28] MEDS: THIAMINE HCL 100 MG TABLET (FP) PO SCH (21:04)
[2017-07-28] MEDS: MIRTAZAPINE 30 MG TABLET (FP) PO SCH (21:05)
[2017-07-28] MEDS: OLANZapine 7.5 MG TABLET PO SCH (21:05)
[2017-07-28] MEDS: QUEtiapine FUMARATE 200 MG TABLET PO SCH (21:05)
[2017-07-28] MEDS: LIDOCAINE PATCH REMOVAL MC SCH (22:15)
[2017-07-29] MEDS ORDERED: METHADONE HCL 40 MG DISPERSABLE TABLET ONE (03:23)
[2017-07-29] MEDS ORDERED: METHADONE HCL 10 MG TABLET ONE (03:23)
[2017-07-29] MEDS: CYCLOBENZAPRINE HCL 10 MG TABLET (FP) PO SCH (06:03)
[2017-07-29] MEDS: METHADONE 80 MG, METHADONE 20 MG PO SCH (06:03)
[2017-07-29 07:02] VITALS: BP 112/77; PULSE 81; TEMP 96.2
== END 2017-07-29 07:05 | disposition home or self-care (01) | DRG 895 ==
LOC: YASAS 11:58 → Y3W 18:37
PROVIDERS: ADMIT Psychiatry & Neurology Psychiatry; ATTEND Psychiatry & Neurology Psychiatry
PROC: HZ42ZZZ Group Counseling for Substance Abuse Treatment, Cognitive-Behavioral (ICD-10-PCS; principal; 2017-07-16)
DX: F11.20 Opioid dependence, uncomplicated (principal); F14.20 Cocaine dependence, uncomplicated; F20.0 Paranoid schizophrenia; F10.20 Alcohol dependence, uncomplicated; F17.210 Nicotine dependence, cigarettes, uncomplicated; H04.129 Dry eye syndrome of unspecified lacrimal gland
CPT/HCPCS: 36415; 80053; 80164; 81003; 81015; 82962; 85027; 86593; 93005; 93010

== ENCOUNTER 2020-02-20 10:52 | Inpatient (IN) | payer OTHER ==
--- NOTE | 2020-02-20 11:11 | BHS.RME ---
Substance Use & Tx History - Substance Use History Heroin Substance amount: 1 gram Frequency of use: Daily Substance route: Inhalation (ex: sniffing or snorting) Date of Last Use: 02/20/20 (started age 33) Cocaine- Powder Substance amount: 1/2 gram Substance route: Smoking Date of Last Use: 02/19/20 (started age 23) Nicotine Substance amount: 1/2 pack Frequency of use: Daily Substance route: Smoking Date of Last Use: 02/20/20 (started age 17) Physical/Psych/Mental Status - Behavior General Behavior: Increased activity (restlessness, agitation) Eye Contact: Normal - Cooperativeness Cooperativeness: Cooperative - Thinking Thought Processes: Tight, Logical, Goal Directed - Physical Health Problems Is patient presently having any pain?: No Does patient presently have any injuries (include location): No Does patient currently have a fever: No Is patient : No COWS - Scale Sweatin= Chills/Flushing Restless Observation: 3= Extraneous Movement Pupil Size: 1= Pupils >than Normal Bone or Joint Aches: 1= Mild Discomfort Runny Nose/ Eye Tearin= Nasal Congestion GI Upset > 30mins: 1= Stomach Cramp Tremor Observation: 1= Tremor [place], Not Seen Yawning Observation: 1= 1-2x During Session Anxiety or Irritability: 4=Extreme Anxiety Goose Flesh Skin: 0=Smooth Skin
--- NOTE | 2020-02-20 11:46 | HP ---
COWS - Scale Resting Pulse: 1= NE 81-100 Sweatin= Chills/Flushing Restless Observation: 3= Extraneous Movement Pupil Size: 1= Pupils >than Normal Bone or Joint Aches: 1= Mild Discomfort Runny Nose/ Eye Tearin= Nasal Congestion GI Upset > 30mins: 1= Stomach Cramp Tremor Observation: 1= Tremor [place], Not Seen Yawning Observation: 1= 1-2x During Session Anxiety or Irritability: 4=Extreme Anxiety Goose Flesh Skin: 0=Smooth Skin COWS Score: 15 CIWA Score - Admission Criteria OASAS Guidelines: Admission for Medically Managed Detox: Requires at least one of the followin. CIWA greater than 12 2. Seizures within the past 24 hours 3. Delirium tremens within the past 24 hours 4. Hallucinations within the past 24 hours 5. Acute intervention needed for co occurring medical disorder 6. Acute intervention needed for co occurring psychiatric disorder 7. Severe withdrawal that cannot be handled at a lower level of care (continued vomiting, continued diarrhea, abnormal vital signs) requiring intravenous medication and/or fluids 8. Admitting History and Physical - Admission Chief Complaint: Mr. Hanks is a 39 yo man who presents to [facility] requesting admission to detox for heroin use. History of Present Illness: Mr. Hanks is a 39 yo man who presents to [facility] requesting admission to detox for heroin use. He was last here in 2017. He is s/p incarceration 8 mos ago. PMH: Stroke with right hemiparesis, s/p fall into an open man hole cover with s ubsequent low back pain and right sided sciatica, right eye retinal detachment with loss of acuity PSH; hernia repair Psych: Paranoid schizophrenia, depression, PTSD, taking Seroquel 300 mg qam and 400 mg qhs SOC: lives in an apartment alone in [place] Legal: on probation - Substance Use History Heroin Substance amount: 1 gram Frequency of use: Daily Substance route: Inhalation (ex: sniffing or snorting) Date of Last Use: 02/20/20 (started age 33) No OD No narcan at home Cocaine- Powder Substance amount: 1/2 gram Substance route: Smoking Date of Last Use: 02/19/20 (started age 23) Nicotine Substance amount: 1/2 pack Frequency of use: Daily Substance route: Smoking Date of Last Use: 02/20/20 (started age 17) History Source: Patient Limitations to Obtaining History: No Limitations - Smoking History Smoking history: Current every day smoker Have you smoked in the past 12 months: Yes Aproximately how many cigarettes per day: 4 - Alcohol/Substance Use Hx Alcohol Use: Yes Admission ROS BHS - HPI Allergies/Adverse Reactions: Allergies Allergy/AdvReac Type Severity Reaction Status Date / Time haloperidol [From Haldol] AdvReac Severe EXTRA Verified 02/20/20 11:26 PYRAMIDAL REACTION haloperidol lactate AdvReac Severe EXTRA Verified 07/16/17 16:56 [From Haldol] PYRAMIDAL REACTION Exam Limitations: No Limitations - Ebola screening Have you traveled outside of the country in the last 21 days: No Have you been sick,other than usual withdrawal symptoms: No Do you have a fever: No - Review of Systems Constitutional: No Symptoms Reported EENT: reports: Blurred Vision (glasses for reading and distance, hx of retinal detatchment with decreased acuity right eye) Respiratory: reports: No Symptoms reported Cardiac: reports: No Symptoms Reported GI: reports: Nausea : reports: No Symptoms Reported Musculoskeletal: reports: Back Pain (chronic), Muscle Pain (withdrawal) Integumentary: reports: Rash (dry flaky skin between toes) Neuro: reports: No Symptoms reported Endocrine: reports: No Symptoms Reported Hematology: reports: No Symptoms Reported Psychiatric: reports: Anxious, Depressed (no SI) Patient History - Patient Medical History Hx Anemia: No Hx Asthma: No Hx Chronic Obstructive Pulmonary Disease (COPD): No Hx Cancer: No Hx Cardiac Disorders: No Hx Hypertension: No Hx Hypercholesterolemia: No Hx Pacemaker: No HX Cerebrovascular Accident: No Hx Seizures: No Hx Diabetes: No Hx Gastrointestinal Disorders: No Hx Liver Disease: No Hx Genitourinary Disorders: No Hx Sexually Transmitted Disorders: No Hx Renal Disease (ESRD): No Hx Thyroid Disease: No Hx Human Immunodeficiency Virus (HIV): No (neg 5m ago) Hx Hepatitis C: No Hx Depression: Yes Hx Suicide Attempt: No Hx Bipolar Disorder: No Hx Schizophrenia: Yes - Patient Surgical History Past Surgical History: No Hx Neurologic Surgery: No Hx Cataract Extraction: No Hx Cardiac Surgery: No Hx Lung Surgery: No Hx Breast Surgery: No Hx Breast Biopsy: No Hx Abdominal Surgery: No Hx Appendectomy: No Hx Cholecystectomy: No Hx Genitourinary Surgery: No Hx Section: No Hx Orthopedic Surgery: No Anesthesia Reaction: No - PPD History Date: 07/18/17 Results: 0 mm - Smoking Cessation Smoking history: Current every day smoker Have you smoked in the past 12 months: Yes Aproximately how many cigarettes per day: 10 Cigars Per Day: 0 Hx Chewing Tobacco Use: No Initiated information on smoking cessation: Yes 'Breaking Loose' booklet given: 02/20/20 Admission Physical Exam [facility] - Vital Signs Vital Signs: UDS: rohit, fen, mop Vitals: 123/79 83 20 97.4 - Physical General Appearance: Yes: Within Normal Limits, No Apparent Distress, Nourished, Appropriately Dressed HEENTM: Yes: EOMI, Normocephalic, Normal Voice Respiratory: Yes: Lungs Clear, No Respiratory Distress, No Accessory Muscle Use Neck: Yes: Within Normal Limits, Supple Breast: Yes: Breast Exam Deferred Cardiology: Yes: Regular Rhythm, Regular Rate Abdominal: Yes: Non Tender, Flat, Soft, Increased Bowel Sounds Genitourinary: Yes: Other (deferred) Back: Yes: Normal Inspection Musculoskeletal: Yes: Gait Steady Extremities: Yes: Normal Inspection, Non-Tender Neurological: Yes: Alert, Normal Response Integumentary: Yes: Other (dry, flaky skin between toes) - Diagnostic (1) Chronic low back pain Current Visit: Yes Status: Chronic Qualifiers: Back pain laterality: midline Sciatica presence: with sciatica Sciatica laterality: sciatica of right side Qualified Code(s): M54.41 - Lumbago with sciatica, right side; G89.29 - Other chronic pain Comment: 1. prn ibuprofen (2) Cocaine dependence Current Visit: No Status: Chronic Comment: 1. drug use education (3) Nicotine dependence Current Visit: No Status: Chronic Qualifiers: Nicotine product type: cigarettes Substance use status: uncomplicated Qualified Code(s): F17.210 - Nicotine dependence, cigarettes, uncomplicated Comment: 1. Nicotine replacement therapy (4) Opioid dependence with withdrawal Current Visit: No Status: Chronic Comment: 1. Admit detox 2. Methadone protocol 3. EKG 4. Comfort medications (5) Schizophrenia, paranoid type Current Visit: No Status: Chronic (6) Status post CVA Current Visit: No Status: Chronic Cleared for Admission [facility] - Detox or Rehab [facility] Level of Care: Medically Managed Detox Regimen/Protocol: Methadone Breathalyzer - Breathalyzer Breathalyzer: 0 Inpatient Rehab Admission - Rehab Decision to Admit Inpatient rehab admission?: No
[2020-02-20 11:47] VITALS: BMI 27.1
[2020-02-20] MEDS ORDERED: cloNIDine HCL 0.1 MG TABLET PO PRN (11:47)
[2020-02-20] MEDS ORDERED: IBUPROFEN 400 MG TABLET (FP) PO PRN (11:47)
[2020-02-20] MEDS ORDERED: BISMUTH SUBSALICYLATE 262 MG/15 ML BTL PO PRN (11:47)
[2020-02-20] MEDS ORDERED: MENTHOL/PHENOL 1 EACH UD MM PRN (11:47)
[2020-02-20] MEDS ORDERED: MAGNESIUM CITRATE 300 ML BOTTLE PO PRN (11:47)
[2020-02-20] MEDS ORDERED: MAGNESIUM HYDROX 2400MG/30ML ORAL SUSPENSION 30 ML CUP PO PRN (11:47)
[2020-02-20] MEDS ORDERED: MAG HYDROX/AL HYDROX/SIMETH 30 ML UNIT-DOSE CUP PO PRN (11:47)
[2020-02-20] MEDS ORDERED: METHADONE HCL 10 MG TABLET (FOR DETOX USE ONLY) PO ONE (11:47)
[2020-02-20] MEDS ORDERED: NICOTINE POLACRILEX 2 MG GUM BUC PRN (11:47)
[2020-02-20] MEDS ORDERED: ACETAMINOPHEN 325 MG TABLET (FP) PO PRN ×2 (11:47)
[2020-02-20] MEDS ORDERED: METHOCARBAMOL 500 MG TABLET PO PRN (11:47)
[2020-02-20] MEDS: NICOTINE 14 MG/24 HOURS TOPICAL PATCH TD SCH (12:47)
--- OUTSIDE RECORDS SUMMARY | 2020-02-20 13:03 | XMS ---
:1980 Author Organization [facility] Support Name Relationship Address Phone UE Unavailable Unavailable Unavailable CHINO MURRY SISTER [address] [place] [address] EVA DEWITT Unavailable Unavailable Re-disclosure Warning The records that you are about to access may contain information from federally- assisted alcohol or drug abuse programs. If such information is present, then the following federally mandated warning applies: This information has been disclosed to you from records protected by federal confidentiality rules (42 CFR part 2). The federal rules prohibit you from making any further disclosure of this information unless further disclosure is expressly permitted by the written consent of the person to whom it pertains or as otherwise permitted by 42 CFR part 2. A general authorization for the release of medical or other information is NOT sufficient for this purpose. The Federal rules restrict any use of the information to criminally investigate or prosecute any alcohol or drug abuse patient.The records that you are about to access may contain highly sensitive health information, the redisclosure of which is protected by Article 27-F of the [facility] Public Health law. If you continue you may haveaccess to information: Regarding HIV / AIDS; Provided by facilities licensed or operated by the [facility] Office of Mental Health; or Provided by the [facility] Office for People With Developmental Disabilities. If such information is present, then the following [facility] mandated warning applies: This information has been disclosed to you from confidential records which are protected by state law. State law prohibits you from making any further disclosure of this information without the specific written consent of the person to whom it pertains, or as otherwise permitted by law. Any unauthorized further disclosure in violation of state law may result in a fine or long-term sentence or both. A general authorization for the release of medical or other information is NOT sufficient authorization for further disclosure. Insurance Providers Payer name Policy type Policy ID Covered Covered libertarian's Policy P elvia / Coverage libertarian ID relationship to [place] Inf ormation type guerrero MEDICAID [id number] [facility] [id number] MEDICARE MEDICAID [place] [id number] Self [id number] MEDICARE [id number] Self [id number] A PART B
--- OUTSIDE RECORDS SUMMARY | 2020-02-20 13:38 | XMS ---
:1980 Author Organization [facility] Support Name Relationship Address Phone UE Unavailable Unavailable Unavailable CHINO MURRY SISTER [address] [place] [address] EVA DEWITT Unavailable Unavailable Re-disclosure Warning The [...] is protected by Article 27-F of the [facility] Public Health law. If you continue you may haveaccess to information: Regarding HIV / AIDS; Provided by facilities licensed or operated by the [facility] Office of Mental Health; or Provided by the [facility] Office for People With Developmental Disabilities. If such information is present, then the following [facility] mandated warning applies: This information has been [...] law may result in a fine or shelter sentence or both. A general authorization for the release of medical or other information is NOT sufficient authorization for further disclosure. Insurance Providers Payer name Policy type Policy ID Covered Covered constitution party's Policy P elvia / Coverage constitution party ID relationship to [place] Inf ormation type guerrero MEDICAID [id number] [facility] [id number] MEDICARE MEDICAID [place] [id number] Self [id number] MEDICARE [id number] Self [id number] A PART B
[2020-02-20] MEDS ORDERED: hydrOXYzine PAMOATE 25 MG CAPSULE (FP) PO SCH (14:00)
--- NOTE | 2020-02-20 14:26 | EKG ---
Test Reason : Blood Pressure : / mmHG Vent. Rate : 060 BPM Atrial Rate : 060 BPM P-R Int : 164 ms QRS Dur : 106 ms QT Int : 410 ms P-R-T Axes : 027 062 043 degrees QTc Int : 410 ms NORMAL SINUS RHYTHM MINIMAL VOLTAGE CRITERIA FOR LVH, MAY BE NORMAL VARIANT BORDERLINE ECG WHEN COMPARED WITH ECG OF 16-JUL-2017 23:01, NO SIGNIFICANT CHANGE WAS FOUND Confirmed by Turner Morales ([id number]) on 02/20/2020 2:25:33 PM Referred By: Confirmed By:Turner Morales
[2020-02-20 14:43] LABS: HEMATOCRIT 40.6 % (35.4-49); HEMOGLOBIN 13.2 GM/dL (11.7-16.9); MCH 29.5 pg (25.7-33.7); MCHC 32.6 g/dl (32.0-35.9); MEAN CELL VOLUME 90.6 fl (80-96); MEAN PLT VOLUME 8.7 fl (7.5-11.1); PLATELET COUNT 286 K/MM3 (134-434); RBC 4.48 M/mm3 (4.00-5.60)
[2020-02-20 14:46] LABS: ALBUMIN 3.9 g/dl (3.4-5.0); BILIRUBIN,TOTAL 0.5 mg/dL (0.2-1); BLOOD UREA NITROGEN 9.4 mg/dL (7-18); CALCIUM 9.3 mg/dL (8.5-10.1); CREATININE 1.2 mg/dL (0.55-1.3); POTASSIUM 3.9 mmol/L (3.5-5.1); TOT PROT 7.4 g/dl (6.4-8.2)
[2020-02-20] MEDS: CLOTRIMAZOLE 1% CREAM 15 GM TUBE TP SCH ×2 (15:16→23:55)
[2020-02-20] MEDS: MELATONIN 5 MG TABLETS PO SCH (22:36)
[2020-02-20] MEDS: THIAMINE HCL 100 MG TABLET (FP) PO SCH (22:36)
--- NOTE | 2020-02-20 23:40 | PN ---
[facility] Progress Note Note: Patient was admitted at 11.40AM and has not been evaluated by psych. In his last admission, psych decreased his Seroquel from 400mg to 200mg. Patient reports that he is on Seroquel 400mg as was documented by Dr. York. Unable to verify patient's dose and the fact that he was not seen by psych., I informed patient that I will give him Seroquel 200mg, he became agitated and was pacing the floor in anger. I was able to convince patient to take Seroquel 200mg tablet oral today until psych. is able to evaluate and verify his Seroquel dose tomorrow. Vital Signs Temperature 98 F 02/20/20 21:05 Pulse Rate 56 L 02/20/20 21:05 Respiratory Rate 18 02/20/20 21:05 Blood Pressure 128/78 02/20/20 21:05 O2 Sat by Pulse Oximetry (%) Action: Seroquel 200mg tablet oral stat F/U with psych. consult as ordered
[2020-02-20] MEDS ORDERED: QUEtiapine FUMARATE 200 MG TABLET PO ONE (23:50)
[2020-02-20] MEDS: hydrOXYzine PAMOATE 25 MG CAPSULE (FP) PO PRN (23:52)
[2020-02-20] MEDS ORDERED: MELATONIN 5 MG TABLETS PO ONE (23:55)
[2020-02-21] MEDS ORDERED: METHADONE HCL 5 MG TABLET (FOR DETOX USE ONLY) ONE (08:37)
[2020-02-21] MEDS ORDERED: METHADONE HCL 10 MG TABLET (FOR DETOX USE ONLY) ONE (08:37)
[2020-02-21] MEDS ORDERED: METHADONE (DETOX) 20 MG, METHADONE (DETOX) 5 MG PO ONE (10:00)
[2020-02-21] MEDS: CLOTRIMAZOLE 1% CREAM 15 GM TUBE TP SCH ×2 (10:38→23:36)
[2020-02-21] MEDS: PRENATAL VITAMINS W/ FOLIC ACID TABLET (FP) PO SCH (10:39)
[2020-02-21] MEDS: NICOTINE 14 MG/24 HOURS TOPICAL PATCH TD SCH (10:39)
--- NOTE | 2020-02-21 12:05 | PN ---
BHS COWS - Scale Resting Pulse: 0= [place] 80 or Below Sweatin= Chills/Flushing Restless Observation: 1= Difficult to Sit Still Pupil Size: 0= Normal to Room Light Bone or Joint Aches: 2= Severe Diffuse Aches Runny Nose/ Eye Tearin= Runny Nose/Eyes GI Upset > 30mins: 0= None Tremor Observation of Outstretched Hands: 1= Tremor [place], Not Seen Yawning Observation: 1= 1-2x During Session Anxiety or Irritability: 2=Irritable/Anxious Goose Flesh Skin: 0=Smooth Skin COWS Score: 10 BHS Progress Note (SOAP) Subjective: sweats shakes interrupted sleep agitation restless Objective: 02/21/20 12:02 Vital Signs Temperature 98 F 02/21/20 05:36 Pulse Rate 56 L 02/21/20 05:36 Respiratory Rate 16 02/21/20 05:36 Blood Pressure 117/62 02/21/20 05:36 O2 Sat by Pulse Oximetry (%) 98 02/21/20 05:36 Laboratory Tests 02/20/20 02/20/20 02/20/20 11:45 11:45 11:45 WBC 7.0 RBC 4.48 Hgb 13.2 Hct 40.6 MCV 90.6 MCH 29.5 MCHC 32.6 RDW 14.0 Plt Count 286 MPV 8.7 Sodium 138 Potassium 3.9 Chloride 102 Carbon Dioxide 33 H Anion Gap 4 L BUN 9.4 Creatinine 1.2 Est GFR (CKD-EPI)AfAm 86.53 Est GFR (CKD-EPI)NonAf 74.66 Random Glucose 107 H Calcium 9.3 Total Bilirubin 0.5 AST 14 L ALT 18 Alkaline Phosphatase 79 Total Protein 7.4 Albumin 3.9 Syphilis Serology Non-reactive HIV Ag/Ab Combo Qual 02/20/20 11:45 WBC RBC Hgb Hct MCV MCH MCHC RDW Plt Count MPV Sodium Potassium Chloride Carbon Dioxide Anion Gap BUN Creatinine Est GFR (CKD-EPI)AfAm Est GFR (CKD-EPI)NonAf Random Glucose Calcium Total Bilirubin AST ALT Alkaline Phosphatase Total Protein Albumin Syphilis Serology HIV Ag/Ab Combo Qual Negative labs noted aaox3 ambulating no acute distress Assessment: 02/21/20 12:04 withdrawals Plan: continue detox increase fluids
--- NOTE | 2020-02-21 14:31 | CONSULT ---
[facility] Psychiatric Consult - Data Date of interview: 02/21/20 Admission source: Self-referred Identifying data: Mr Sanchez is a 39 years old single Black male, father of 3 children, unemployed on SSD, domiciled seeking detox treatment for heroin and cocaine Substance Abuse History: Reports history of heroin and crack cocaine use. Refer to addicton counselor's summary for further information Medical History: Significant for low back pain/sciatica, retinal detachment with loss of acuity right eye, history of cerebro-vascular accident with left sided weakness in 2009 Psychiatric History: Patient is known for three previous admissions to this facility. He was very irritable, hostile during the interview. He reports that his first psychiatric contact occured in 2015 when he was admitted to [facility] for auditory hallucinations. He said that he was diagnosed with Paranoid Schizophrenia and started on psychotropic medications. Reports subsequent psychiatric hospitalizations at various institutions including [facility], [facility] and [facility]. Reports that he receives outpatient psychiatric treatment at [facility] and he is prescribed Seroquel 300 mg/day & 400 mg/hs. [facility], [address] [place] [id number] [phone]. According to pharmacy staff, script for 30 days supply of Seroquel 300 mgday & 400 mg.hs were filled in November. Denies previous suicidal attempt. At present, denies expriencing psychotic symptoms, S/H ideations. However, he is very irritable, hostile and reports sleeping poorly Physical/Sexual Abuse/Trauma History: Not addressed due patient's hostility Mental Status Exam - Mental Status Exam Alert and Oriented to: Time, Place, Person Cognitive Function: Fair Patient Appearance: Disheveled Mood: Angry, Hostile, Irritable Affect: Appropriate Patient Behavior: Uncooperative Speech Pattern: Clear Voice Loudness: Normal Thought Process: Intact, Goal Oriented Thought Disorder: Not Present Hallucinations: Denies Suicidal Ideation: Denies Homicidal Ideation: Denies Insight/Judgement: Poor Sleep: Poorly Appetite: Fair Muscle strength/Tone: Normal Gait/Station: Normal Psychiatric Findings - Problem List ([place] 1, 2,3) (1) Schizophrenia, paranoid type Current Visit: No Status: Chronic (2) Substance induced mood disorder Current Visit: No Status: Acute (3) Substance-induced sleep disorder Current Visit: Yes Status: Acute (4) Opioid dependence with withdrawal Current Visit: No Status: Acute Comment: 1. Admit detox 2. Methadone protocol 3. EKG 4. Comfort medications (5) Cocaine dependence Current Visit: No Status: Acute (6) Nicotine dependence Current Visit: No Status: Chronic Qualifiers: Nicotine product type: cigarettes Substance use status: uncomplicated Qualified Code(s): F17.210 - Nicotine dependence, cigarettes, uncomplicated Comment: 1. Nicotine replacement therapy (7) Chronic low back pain Current Visit: Yes Status: Chronic Qualifiers: Back pain laterality: midline Sciatica presence: with sciatica Sciatica laterality: sciatica of right side Qualified Code(s): M54.41 - Lumbago with sciatica, right side; G89.29 - Other chronic pain Comment: 1. prn ibuprofen (8) Detached retina, left Current Visit: No Status: Chronic (9) Status post CVA Current Visit: No Status: Resolved - Initial Treatment Plan Initial Treatment Plan: 1) Start Seroquel 100 mg daily & 200 mg HS. 2) Continue inpatient detoxification
[2020-02-21] MEDS: QUEtiapine FUMARATE 100 MG TABLET (FP) PO SCH (15:34)
[2020-02-21] MEDS: QUEtiapine FUMARATE 200 MG TABLET PO SCH (23:32)
[2020-02-21] MEDS: ONDANSETRON *ODT* 4 MG TABLET SL PRN (23:34)
[2020-02-21] MEDS: THIAMINE HCL 100 MG TABLET (FP) PO SCH (23:35)
[2020-02-21] MEDS: MELATONIN 5 MG TABLETS PO SCH (23:36)
[2020-02-22] MEDS: PRENATAL VITAMINS W/ FOLIC ACID TABLET (FP) PO SCH (09:58)
[2020-02-22] MEDS: NICOTINE 14 MG/24 HOURS TOPICAL PATCH TD SCH (09:58)
[2020-02-22] MEDS: CLOTRIMAZOLE 1% CREAM 15 GM TUBE TP SCH ×2 (09:59→22:25)
[2020-02-22] MEDS ORDERED: METHADONE HCL 10 MG TABLET (FOR DETOX USE ONLY) PO ONE (10:00)
[2020-02-22] MEDS: hydrOXYzine PAMOATE 25 MG CAPSULE (FP) PO PRN ×2 (10:01→22:07)
[2020-02-22] MEDS: QUEtiapine FUMARATE 100 MG TABLET (FP) PO SCH (12:34)
--- NOTE | 2020-02-22 13:22 | PN ---
BHS COWS - Scale Resting Pulse: 0= [place] 80 or Below Sweatin= Chills/Flushing Restless Observation: 1= Difficult to Sit Still Pupil Size: 0= Normal to Room Light Bone or Joint Aches: 1= Mild Discomfort Runny Nose/ Eye Tearin= Nasal Congestion GI Upset > 30mins: 0= None Tremor Observation of Outstretched Hands: 1= Tremor [place], Not Seen Yawning Observation: 1= 1-2x During Session Anxiety or Irritability: 1=Feels Anxious/Irritable Goose Flesh Skin: 0=Smooth Skin COWS Score: 7 BHS Progress Note (SOAP) Subjective: sweats restless agitation anxiety interrupted sleep Objective: 02/22/20 13:21 Vital Signs Temperature 98.0 F 02/22/20 09:15 Pulse Rate 52 L 02/22/20 09:15 Respiratory Rate 18 02/22/20 09:15 Blood Pressure 125/65 02/22/20 09:15 O2 Sat by Pulse Oximetry (%) 99 02/22/20 09:15 Laboratory Tests 02/20/20 02/20/20 02/20/20 11:45 11:45 11:45 WBC 7.0 RBC 4.48 Hgb 13.2 Hct 40.6 MCV 90.6 MCH 29.5 MCHC 32.6 RDW 14.0 Plt Count 286 MPV 8.7 Sodium 138 Potassium 3.9 Chloride 102 Carbon Dioxide 33 H Anion Gap 4 L BUN 9.4 Creatinine 1.2 Est GFR (CKD-EPI)AfAm 86.53 Est GFR (CKD-EPI)NonAf 74.66 Random Glucose 107 H Calcium 9.3 Total Bilirubin 0.5 AST 14 L ALT 18 Alkaline Phosphatase 79 Total Protein 7.4 Albumin 3.9 Syphilis Serology Non-reactive COVID-19 (ABRAHAN) HIV Ag/Ab Combo Qual 02/20/20 02/20/20 11:45 13:20 WBC RBC Hgb Hct MCV MCH MCHC RDW Plt Count MPV Sodium Potassium Chloride Carbon Dioxide Anion Gap BUN Creatinine Est GFR (CKD-EPI)AfAm Est GFR (CKD-EPI)NonAf Random Glucose Calcium Total Bilirubin AST ALT Alkaline Phosphatase Total Protein Albumin Syphilis Serology COVID-19 (ABRAHAN) Not detected HIV Ag/Ab Combo Qual Negative labs noted aaox3 ambulating no acute distress Assessment: 09/24/20 13:21 withdrawals Plan: continue detox increase fluids
[2020-02-22] MEDS: THIAMINE HCL 100 MG TABLET (FP) PO SCH (22:07)
[2020-02-22] MEDS: QUEtiapine FUMARATE 200 MG TABLET PO SCH (22:07)
[2020-02-22] MEDS: ONDANSETRON *ODT* 4 MG TABLET SL PRN (22:07)
[2020-02-22] MEDS: MELATONIN 5 MG TABLETS PO SCH (22:07)
[2020-02-23 09:32] VITALS: BP 136/76; PULSE 54; TEMP 98.2
[2020-02-23] MEDS ORDERED: METHADONE HCL 5 MG TABLET (FOR DETOX USE ONLY) ONE (09:36)
[2020-02-23] MEDS ORDERED: METHADONE HCL 10 MG TABLET (FOR DETOX USE ONLY) ONE (09:37)
[2020-02-23] MEDS ORDERED: METHADONE (DETOX) 10 MG, METHADONE (DETOX) 5 MG PO ONE (10:00)
[2020-02-23] MEDS: ONDANSETRON *ODT* 4 MG TABLET SL PRN (10:05)
[2020-02-23] MEDS: NICOTINE 14 MG/24 HOURS TOPICAL PATCH TD SCH (10:05)
[2020-02-23] MEDS: PRENATAL VITAMINS W/ FOLIC ACID TABLET (FP) PO SCH (10:05)
[2020-02-23] MEDS: QUEtiapine FUMARATE 100 MG TABLET (FP) PO SCH (10:05)
[2020-02-23] MEDS: CLOTRIMAZOLE 1% CREAM 15 GM TUBE TP SCH (10:05)
[2020-02-23] MEDS: hydrOXYzine PAMOATE 25 MG CAPSULE (FP) PO PRN (10:06)
--- NOTE | 2020-02-23 10:20 | PN ---
BHS COWS - Scale Resting Pulse: 0= [place] 80 or Below Sweatin= No chills or Flushing Restless Observation: 1= Difficult to Sit Still Pupil Size: 0= Normal to Room Light Bone or Joint Aches: 0= None Runny Nose/ Eye Tearin= None GI Upset > 30mins: 0= None Tremor Observation of Outstretched Hands: 0= None Yawning Observation: 0= None Anxiety or Irritability: 0= None Goose Flesh Skin: 0=Smooth Skin COWS Score: 1 BHS Progress Note (SOAP) Subjective: agitation Objective: 02/23/20 10:31 Vital Signs Temperature 98.2 F 02/23/20 09:00 Pulse Rate 54 L 02/23/20 09:00 Respiratory Rate 18 02/23/20 09:00 Blood Pressure 136/76 02/23/20 09:00 O2 Sat by Pulse Oximetry (%) 98 02/23/20 09:00 Laboratory Tests 02/20/20 02/20/20 02/20/20 11:45 11:45 11:45 WBC 7.0 RBC 4.48 Hgb 13.2 Hct 40.6 MCV 90.6 MCH 29.5 MCHC 32.6 RDW 14.0 Plt Count 286 MPV 8.7 Sodium 138 Potassium 3.9 Chloride 102 Carbon Dioxide 33 H Anion Gap 4 L BUN 9.4 Creatinine 1.2 Est GFR (CKD-EPI)AfAm 86.53 Est GFR (CKD-EPI)NonAf 74.66 Random Glucose 107 H Calcium 9.3 Total Bilirubin 0.5 AST 14 L ALT 18 Alkaline Phosphatase 79 Total Protein 7.4 Albumin 3.9 Syphilis Serology Non-reactive COVID-19 (ABRAHAN) HIV Ag/Ab Combo Qual 02/20/20 02/20/20 11:45 13:20 WBC RBC Hgb Hct MCV MCH MCHC RDW Plt Count MPV Sodium Potassium Chloride Carbon Dioxide Anion Gap BUN Creatinine Est GFR (CKD-EPI)AfAm Est GFR (CKD-EPI)NonAf Random Glucose Calcium Total Bilirubin AST ALT Alkaline Phosphatase Total Protein Albumin Syphilis Serology COVID-19 (ABRAHAN) Not detected HIV Ag/Ab Combo Qual Negative aaox3 ambulating no acute distress lungs CTA Assessment: 02/23/20 10:31 no s/s of withdrawals noted Plan: d/c today
--- NOTE | 2020-02-23 10:35 | DS ---
[facility] Detox Discharge Summary Admission Date: 02/20/20 Discharge Date: 02/23/20 - History Present History: Alcohol Dependence, Cocaine Dependence, Opioid Dependence - Physical Exam Results Vital Signs: Vital Signs Temperature 98.2 F 02/23/20 09:00 Pulse Rate 54 L 02/23/20 09:00 Respiratory Rate 18 02/23/20 09:00 Blood Pressure 136/76 02/23/20 09:00 O2 Sat by Pulse Oximetry (%) 98 02/23/20 09:00 Pertinent Admission Physical Exam Findings: Vital Signs Temperature 98.2 F 02/23/20 09:00 Pulse Rate 54 L 02/23/20 09:00 Respiratory Rate 18 02/23/20 09:00 Blood Pressure 136/76 02/23/20 09:00 O2 Sat by Pulse Oximetry (%) 98 02/23/20 09:00 Laboratory Tests 02/20/20 02/20/20 02/20/20 11:45 11:45 11:45 WBC 7.0 RBC 4.48 Hgb 13.2 Hct 40.6 MCV 90.6 MCH 29.5 MCHC 32.6 RDW 14.0 Plt Count 286 MPV 8.7 Sodium 138 Potassium 3.9 Chloride 102 Carbon Dioxide 33 H Anion Gap 4 L BUN 9.4 Creatinine 1.2 Est GFR (CKD-EPI)AfAm 86.53 Est GFR (CKD-EPI)NonAf 74.66 Random Glucose 107 H Calcium 9.3 Total Bilirubin 0.5 AST 14 L ALT 18 Alkaline Phosphatase 79 Total Protein 7.4 Albumin 3.9 Syphilis Serology Non-reactive COVID-19 ([facility]) HIV Ag/Ab Combo Qual 02/20/20 02/20/20 11:45 13:20 WBC RBC Hgb Hct MCV MCH MCHC RDW Plt Count MPV Sodium Potassium Chloride Carbon Dioxide Anion Gap BUN Creatinine Est GFR (CKD-EPI)AfAm Est GFR (CKD-EPI)NonAf Random Glucose Calcium Total Bilirubin AST ALT Alkaline Phosphatase Total Protein Albumin Syphilis Serology COVID-19 ([facility]) Not detected HIV Ag/Ab Combo Qual Negative labs noted aaox3 ambulating no acute distress lungs CTA - Treatment Hospital Course: Detox Protocol Followed, Detoxed Safely, Responded well, Discharged Condition Good, Rehab Referral Accepted - Medication Discharge Medications: Ambulatory Orders Quetiapine Fumarate [Seroquel -] 400 mg PO HS 02/20/20 - Diagnosis (1) Substance-induced sleep disorder Current Visit: Yes Status: Acute (2) Chronic low back pain Current Visit: Yes Status: Chronic Qualifiers: Back pain laterality: midline Sciatica presence: with sciatica Sciatica laterality: sciatica of right side Qualified Code(s): M54.41 - Lumbago with sciatica, right side; G89.29 - Other chronic pain (3) Cocaine dependence Current Visit: Yes Status: Chronic Qualifiers: Substance use status: uncomplicated Qualified Code(s): F14.20 - Cocaine dependence, uncomplicated (4) Delusional disorder Current Visit: No Status: Acute (5) Depressive disorder Current Visit: No Status: Acute (6) Opiate dependence Current Visit: Yes Status: Chronic Qualifiers: Substance use status: uncomplicated Qualified Code(s): F11.20 - Opioid dependence, uncomplicated (7) Opioid dependence with withdrawal Current Visit: Yes Status: Chronic (8) Psychotic disorder Current Visit: No Status: Acute (9) Substance induced mood disorder Current Visit: No Status: Acute (10) Acute low back pain Current Visit: No Status: Chronic (11) Alcohol dependence with uncomplicated withdrawal Current Visit: Yes Status: Chronic (12) Cocaine dependence Current Visit: Yes Status: Chronic Qualifiers: Substance use status: uncomplicated Qualified Code(s): F14.20 - Cocaine dependence, uncomplicated (13) Detached retina, left Current Visit: No Status: Chronic (14) Nicotine dependence Current Visit: No Status: Chronic Qualifiers: Nicotine product type: cigarettes Substance use status: uncomplicated Qualified Code(s): F17.210 - Nicotine dependence, cigarettes, uncomplicated (15) Opioid dependence on agonist therapy Current Visit: No Status: Chronic (16) Schizophrenia, paranoid type Current Visit: No Status: Chronic (17) Status post CVA Current Visit: No Status: Resolved - AMA Did Patient Leave Against Medical Advice: No
[2020-02-24] MEDS ORDERED: METHADONE HCL 10 MG TABLET (FOR DETOX USE ONLY) PO ONE (10:00)
[2020-02-25] MEDS ORDERED: METHADONE HCL 5 MG TABLET (FOR DETOX USE ONLY) PO ONE (06:00)
== END 2020-02-23 11:20 | disposition home or self-care (01) | DRG 897 ==
LOC: YASAS 10:52 → Y6N 11:50
PROVIDERS: ADMIT Allergy & Immunology; ATTEND Allergy & Immunology
PROC: HZ2ZZZZ Detoxification Services for Substance Abuse Treatment (ICD-10-PCS; principal; 2020-02-20)
DX: F11.23 Opioid dependence with withdrawal (principal); F14.20 Cocaine dependence, uncomplicated; F19.282 Other psychoactive substance dependence with psychoactive substance-induced sleep disorder; F20.0 Paranoid schizophrenia; H33.22 Serous retinal detachment, left eye; I69.854 Hemiplegia and hemiparesis following other cerebrovascular disease affecting left non-dominant side; F29 Unspecified psychosis not due to a substance or known physiological condition; F10.230 Alcohol dependence with withdrawal, uncomplicated; F17.210 Nicotine dependence, cigarettes, uncomplicated; F19.24 Other psychoactive substance dependence with psychoactive substance-induced mood disorder; M54.41 Lumbago with sciatica, right side; Z88.8 Allergy status to other drugs, medicaments and biological substances
CPT/HCPCS: 36415; 80053; 85027; 86780; 87389; 93005; 93010; J0735; Q0162; U0003

== ENCOUNTER 2020-08-13 14:38 | Inpatient (IN) | payer OTHER ==
[2020-08-13 16:15] VITALS: BMI 28.7
[2020-08-13] MEDS ORDERED: ACETAMINOPHEN 325 MG TABLET (FP) PO PRN ×2 (17:43)
[2020-08-13] MEDS ORDERED: NICOTINE POLACRILEX 2 MG GUM BUC PRN (17:43)
[2020-08-13] MEDS ORDERED: MAGNESIUM HYDROX 2400MG/30ML ORAL SUSPENSION 30 ML CUP PO PRN (17:43)
[2020-08-13] MEDS ORDERED: MAGNESIUM CITRATE 300 ML BOTTLE PO PRN (17:43)
[2020-08-13] MEDS ORDERED: IBUPROFEN 400 MG TABLET (FP) PO PRN (17:43)
[2020-08-13] MEDS ORDERED: MENTHOL/PHENOL 1 EACH UD MM PRN (17:43)
[2020-08-13] MEDS ORDERED: MAG HYDROX/AL HYDROX/SIMETH 30 ML UNIT-DOSE CUP PO PRN (17:43)
[2020-08-13] MEDS ORDERED: BISMUTH SUBSALICYLATE 524 MG/30 ML UD PO PRN (17:43)
[2020-08-13] MEDS ORDERED: cloNIDine HCL 0.1 MG TABLET PO PRN (17:44)
[2020-08-13] MEDS ORDERED: METHADONE HCL 10 MG TABLET (FOR DETOX USE ONLY) PO ONE (17:44)
[2020-08-13] MEDS ORDERED: AMMONIUM LACTATE 12% LOTION 225 GM BOTTLE TP PRN (18:04)
[2020-08-13] MEDS ORDERED: QUEtiapine FUMARATE 200 MG TABLET PO ONE (22:00)
[2020-08-13] MEDS: METHOCARBAMOL 500 MG TABLET PO PRN (22:37)
[2020-08-13] MEDS: THIAMINE HCL 100 MG TABLET (FP) PO SCH (22:37)
[2020-08-13] MEDS: MELATONIN 5 MG TABLETS PO SCH (22:39)
[2020-08-14] MEDS ORDERED: QUEtiapine FUMARATE 400 MG TABLET PO ONE (00:19)
[2020-08-14] MEDS ORDERED: QUEtiapine FUMARATE 200 MG TABLET PO ONE (00:45)
[2020-08-14] MEDS ORDERED: METHADONE HCL 5 MG TABLET (FOR DETOX USE ONLY) ONE (09:17)
[2020-08-14] MEDS ORDERED: METHADONE HCL 10 MG TABLET (FOR DETOX USE ONLY) ONE (09:18)
[2020-08-14] MEDS ORDERED: METHADONE (DETOX) 20 MG, METHADONE (DETOX) 5 MG PO ONE (10:00)
[2020-08-14] MEDS: PRENATAL VITAMINS W/ FOLIC ACID TABLET (FP) PO SCH (10:07)
[2020-08-14 11:41] LABS: POTASSIUM 4.3 mmol/L (3.5-5.1)
[2020-08-14 11:42] LABS: HEMATOCRIT 37.3 % (35.4-49); HEMOGLOBIN 12.5 GM/dL (11.7-16.9); MCH 30.4 pg (25.7-33.7); MCHC 33.5 g/dl (32.0-35.9); MEAN CELL VOLUME 90.6 fl (80-96); MEAN PLT VOLUME 8.3 fl (7.5-11.1); PLATELET COUNT 283 K/MM3 (134-434); RBC 4.12 M/mm3 (4.00-5.60); WHITE BLOOD COUNT 5.1 K/mm3 (4.0-10.0)
[2020-08-14 11:49] LABS: ALBUMIN 3.3 g/dl (3.4-5.0); BLOOD UREA NITROGEN 12.2 mg/dL (7-18)
[2020-08-14 11:52] LABS: CREATININE 1.2 mg/dL (0.55-1.3)
[2020-08-14 11:54] LABS: BILIRUBIN,TOTAL 0.6 mg/dL (0.2-1); TOT PROT 6.6 g/dl (6.4-8.2)
[2020-08-14] MEDS ORDERED: diazePAM 5 MG TABLET PO PRN (12:11)
[2020-08-14] MEDS ORDERED: PRAZOSIN HCL 1 MG CAPSULE PO SCH (22:00)
[2020-08-14] MEDS ORDERED: QUEtiapine FUMARATE 200 MG TABLET PO SCH (22:00)
[2020-08-14] MEDS: THIAMINE HCL 100 MG TABLET (FP) PO SCH (22:21)
[2020-08-14] MEDS: MELATONIN 5 MG TABLETS PO SCH (22:22)
[2020-08-14] MEDS: METHOCARBAMOL 500 MG TABLET PO PRN (22:22)
[2020-08-15] MEDS ORDERED: METHADONE HCL 10 MG TABLET (FOR DETOX USE ONLY) PO ONE (10:00)
[2020-08-15] MEDS: PRENATAL VITAMINS W/ FOLIC ACID TABLET (FP) PO SCH (10:13)
[2020-08-15] MEDS ORDERED: diazePAM 5 MG TABLET PO PRN (11:21)
[2020-08-15] MEDS: METHOCARBAMOL 500 MG TABLET PO PRN (13:17)
[2020-08-15 17:51] VITALS: BP 134/99; PULSE 97; TEMP 94.4
[2020-08-16] MEDS ORDERED: METHADONE (DETOX) 10 MG, METHADONE (DETOX) 5 MG PO ONE (10:00)
[2020-08-17] MEDS ORDERED: METHADONE HCL 10 MG TABLET (FOR DETOX USE ONLY) PO ONE (10:00)
[2020-08-18] MEDS ORDERED: METHADONE HCL 5 MG TABLET (FOR DETOX USE ONLY) PO ONE (06:00)
== END 2020-08-15 18:07 | disposition left against medical advice (07) | DRG 894 ==
LOC: YASAS 14:38 → Y6N 18:14
PROVIDERS: ADMIT Allergy & Immunology; ATTEND Allergy & Immunology
PROC: HZ2ZZZZ Detoxification Services for Substance Abuse Treatment (ICD-10-PCS; principal; 2020-08-13)
DX: F11.23 Opioid dependence with withdrawal (principal); F14.20 Cocaine dependence, uncomplicated; F20.0 Paranoid schizophrenia; F19.282 Other psychoactive substance dependence with psychoactive substance-induced sleep disorder; I69.851 Hemiplegia and hemiparesis following other cerebrovascular disease affecting right dominant side; F13.10 Sedative, hypnotic or anxiolytic abuse, uncomplicated; F17.210 Nicotine dependence, cigarettes, uncomplicated; F19.24 Other psychoactive substance dependence with psychoactive substance-induced mood disorder; F41.9 Anxiety disorder, unspecified; F32.9 Major depressive disorder, single episode, unspecified; M21.371 Foot drop, right foot; M21.331 Wrist drop, right wrist; R26.89 Other abnormalities of gait and mobility; Z62.810 Personal history of physical and sexual abuse in childhood; Z88.5 Allergy status to narcotic agent; Z88.8 Allergy status to other drugs, medicaments and biological substances
CPT/HCPCS: 36415; 80053; 85027; 86780; 93005; 93010; C9803; J0735; U0003

== ENCOUNTER 2021-07-12 17:39 | Inpatient (IN) | payer OTHER ==
[2021-07-12 20:38] VITALS: BMI 28.3
[2021-07-12] MEDS ORDERED: MELATONIN 5 MG TABLETS PO SCH (22:00)
[2021-07-12] MEDS ORDERED: P-EPHED 60MG/TRIPROLIDI 2.5MG TABLET PO PRN (23:57)
[2021-07-12] MEDS ORDERED: IBUPROFEN 400 MG TABLET (FP) PO PRN (23:57)
[2021-07-12] MEDS ORDERED: hydrOXYzine PAMOATE 25 MG CAPSULE (FP) PO PRN (23:57)
[2021-07-12] MEDS ORDERED: ACETAMINOPHEN 325 MG TABLET (FP) PO PRN (23:57)
[2021-07-12] MEDS ORDERED: MAGNESIUM CITRATE 300 ML BOTTLE PO PRN (23:57)
[2021-07-12] MEDS ORDERED: guaiFENesin 200 MG/10 ML 10 ML UNIT-DOSE CUPS PO PRN (23:57)
[2021-07-12] MEDS ORDERED: LOPERAMIDE HCL 2 MG CAPSULE PO PRN (23:57)
[2021-07-12] MEDS ORDERED: MAGNESIUM HYDROX 2400MG/30ML ORAL SUSPENSION 30 ML CUP PO PRN (23:57)
[2021-07-12] MEDS ORDERED: MAG HYDROX/AL HYDROX/SIMETH 30 ML UNIT-DOSE CUP PO PRN (23:57)
[2021-07-13] MEDS ORDERED: TUBERCULIN PPD 5 TU/0.1ML VIAL ID ONE (01:10)
[2021-07-13] MEDS ORDERED: methaDONE HCL 40 MG DISPERSABLE TABLET PO SCH (07:45)
[2021-07-13] MEDS ORDERED: methaDONE HCL 40 MG DISPERSABLE TABLET ONE (11:16)
[2021-07-13] MEDS ORDERED: methaDONE HCL 10 MG TABLET ONE (11:16)
[2021-07-13] MEDS: NICOTINE 14 MG/24 HOURS TOPICAL PATCH TD SCH (11:17)
[2021-07-13] MEDS: methaDONE 40 MG, methaDONE 10 MG PO SCH (11:17)
[2021-07-13] MEDS: NICOTINE 10 MG CARTRIDGE (INHALER) IH PRN (11:18)
[2021-07-13] MEDS: PRENATAL VITAMINS W/ FOLIC ACID TABLET (FP) PO SCH (11:19)
[2021-07-13 11:22] LABS: HEMATOCRIT 37.8 % (35.4-49); HEMOGLOBIN 12.4 GM/dL (11.7-16.9); MCH 29.7 pg (25.7-33.7); MCHC 32.8 g/dl (32.0-35.9); MEAN CELL VOLUME 90.6 fl (80-96); MEAN PLT VOLUME 8.6 fl (7.5-11.1); PLATELET COUNT 265 10^3/uL (134-434); RBC 4.17 M/mm3 (4.00-5.60); RDW 14.2 % (11.9-15.9); WHITE BLOOD COUNT 6.4 K/mm3 (4.0-10.0)
[2021-07-13 11:23] LABS: BLOOD UREA NITROGEN 14.2 mg/dL (7-18); CALCIUM 8.9 mg/dL (8.5-10.1)
[2021-07-13 11:24] LABS: ALBUMIN 3.3 g/dl (3.4-5.0)
[2021-07-13 11:27] LABS: CREATININE 1.2 mg/dL (0.55-1.3)
[2021-07-13 11:28] LABS: BILIRUBIN,TOTAL 0.8 mg/dL (0.2-1); TOT PROT 6.6 g/dl (6.4-8.2)
[2021-07-13] MEDS ORDERED: QUEtiapine FUMARATE 400 MG TABLET PO ONE (14:05)
[2021-07-13] MEDS: FLUoxetine HCL 20 MG CAPSULE PO SCH (14:18)
[2021-07-13] MEDS: THIAMINE HCL 100 MG TABLET (FP) PO SCH (22:15)
[2021-07-13] MEDS: hydrOXYzine PAMOATE 25 MG CAPSULE (FP) PO SCH (22:15)
[2021-07-13] MEDS: QUEtiapine FUMARATE 400 MG TABLET PO SCH (22:15)
[2021-07-14] MEDS ORDERED: methaDONE HCL 10 MG TABLET ONE (03:02)
[2021-07-14] MEDS ORDERED: methaDONE HCL 40 MG DISPERSABLE TABLET ONE (03:02)
[2021-07-14] MEDS: hydrOXYzine PAMOATE 25 MG CAPSULE (FP) PO SCH ×4 (03:35→21:58)
[2021-07-14] MEDS: methaDONE 40 MG, methaDONE 10 MG PO SCH (06:50)
[2021-07-14] MEDS: NICOTINE 14 MG/24 HOURS TOPICAL PATCH TD SCH (11:10)
[2021-07-14] MEDS: PRENATAL VITAMINS W/ FOLIC ACID TABLET (FP) PO SCH (11:10)
[2021-07-14] MEDS: FLUoxetine HCL 20 MG CAPSULE PO SCH (11:11)
[2021-07-14] MEDS: QUEtiapine FUMARATE 400 MG TABLET PO SCH ×2 (11:11→21:59)
[2021-07-14] MEDS: NICOTINE 10 MG CARTRIDGE (INHALER) IH PRN (11:12)
[2021-07-14] MEDS: THIAMINE HCL 100 MG TABLET (FP) PO SCH (21:58)
[2021-07-15] MEDS ORDERED: methaDONE HCL 40 MG DISPERSABLE TABLET ONE (02:44)
[2021-07-15] MEDS ORDERED: methaDONE HCL 10 MG TABLET ONE (02:44)
[2021-07-15] MEDS: hydrOXYzine PAMOATE 25 MG CAPSULE (FP) PO SCH ×4 (03:35→21:11)
[2021-07-15] MEDS: methaDONE 40 MG, methaDONE 10 MG PO SCH (06:37)
[2021-07-15] MEDS: PRENATAL VITAMINS W/ FOLIC ACID TABLET (FP) PO SCH (09:37)
[2021-07-15] MEDS: FLUoxetine HCL 20 MG CAPSULE PO SCH (09:38)
[2021-07-15] MEDS: NICOTINE 14 MG/24 HOURS TOPICAL PATCH TD SCH (09:38)
[2021-07-15] MEDS: QUEtiapine FUMARATE 400 MG TABLET PO SCH ×2 (09:38→21:11)
[2021-07-15] MEDS: THIAMINE HCL 100 MG TABLET (FP) PO SCH (21:11)
[2021-07-16] MEDS: hydrOXYzine PAMOATE 25 MG CAPSULE (FP) PO SCH ×4 (03:45→21:16)
[2021-07-16] MEDS ORDERED: methaDONE HCL 40 MG DISPERSABLE TABLET ONE (06:58)
[2021-07-16] MEDS ORDERED: methaDONE HCL 10 MG TABLET ONE (06:58)
[2021-07-16] MEDS: methaDONE 40 MG, methaDONE 20 MG PO SCH (08:14)
[2021-07-16] MEDS ORDERED: methaDONE HCL 40 MG DISPERSABLE TABLET PO SCH (09:00)
[2021-07-16] MEDS: PRENATAL VITAMINS W/ FOLIC ACID TABLET (FP) PO SCH (09:47)
[2021-07-16] MEDS: FLUoxetine HCL 20 MG CAPSULE PO SCH (09:47)
[2021-07-16] MEDS: NICOTINE 14 MG/24 HOURS TOPICAL PATCH TD SCH (09:47)
[2021-07-16] MEDS: QUEtiapine FUMARATE 400 MG TABLET PO SCH ×2 (09:47→21:16)
[2021-07-16 12:19] LABS: SARS-CoV-2 NAA Not Detected
[2021-07-16] MEDS: THIAMINE HCL 100 MG TABLET (FP) PO SCH (21:16)
[2021-07-17] MEDS ORDERED: methaDONE HCL 40 MG DISPERSABLE TABLET ONE (03:00)
[2021-07-17] MEDS ORDERED: methaDONE HCL 10 MG TABLET ONE (03:00)
[2021-07-17] MEDS: hydrOXYzine PAMOATE 25 MG CAPSULE (FP) PO SCH ×2 (03:16→09:52)
[2021-07-17] MEDS: methaDONE 40 MG, methaDONE 20 MG PO SCH (06:43)
[2021-07-17] MEDS: FLUoxetine HCL 20 MG CAPSULE PO SCH (09:52)
[2021-07-17] MEDS: PRENATAL VITAMINS W/ FOLIC ACID TABLET (FP) PO SCH (09:52)
[2021-07-17] MEDS: QUEtiapine FUMARATE 400 MG TABLET PO SCH ×2 (09:52→21:18)
[2021-07-17] MEDS: NICOTINE 14 MG/24 HOURS TOPICAL PATCH TD SCH (09:52)
[2021-07-17] MEDS: THIAMINE HCL 100 MG TABLET (FP) PO SCH (21:18)
[2021-07-17] MEDS: hydrOXYzine PAMOATE 50 MG CAPSULE (FP) PO PRN (21:18)
[2021-07-18] MEDS ORDERED: methaDONE HCL 10 MG TABLET ONE (05:10)
[2021-07-18] MEDS ORDERED: methaDONE HCL 40 MG DISPERSABLE TABLET ONE (05:10)
[2021-07-18] MEDS: methaDONE 40 MG, methaDONE 20 MG PO SCH (06:47)
[2021-07-18] MEDS: NICOTINE 14 MG/24 HOURS TOPICAL PATCH TD SCH (09:53)
[2021-07-18] MEDS: FLUoxetine HCL 20 MG CAPSULE PO SCH (09:53)
[2021-07-18] MEDS: QUEtiapine FUMARATE 400 MG TABLET PO SCH ×2 (09:53→21:51)
[2021-07-18] MEDS: PRENATAL VITAMINS W/ FOLIC ACID TABLET (FP) PO SCH (09:53)
[2021-07-18] MEDS: THIAMINE HCL 100 MG TABLET (FP) PO SCH (21:51)
[2021-07-19] MEDS ORDERED: methaDONE HCL 10 MG TABLET ONE (02:47)
[2021-07-19] MEDS ORDERED: methaDONE HCL 40 MG DISPERSABLE TABLET ONE (02:47)
[2021-07-19] MEDS: methaDONE 40 MG, methaDONE 20 MG PO SCH (06:29)
[2021-07-19] MEDS: PRENATAL VITAMINS W/ FOLIC ACID TABLET (FP) PO SCH (09:41)
[2021-07-19] MEDS: QUEtiapine FUMARATE 400 MG TABLET PO SCH ×2 (09:41→21:09)
[2021-07-19] MEDS: NICOTINE 14 MG/24 HOURS TOPICAL PATCH TD SCH (09:41)
[2021-07-19] MEDS: hydrOXYzine PAMOATE 50 MG CAPSULE (FP) PO PRN ×2 (09:41→18:41)
[2021-07-19] MEDS: FLUoxetine HCL 20 MG CAPSULE PO SCH (09:41)
[2021-07-19] MEDS: THIAMINE HCL 100 MG TABLET (FP) PO SCH (21:09)
[2021-07-20] MEDS ORDERED: methaDONE HCL 10 MG TABLET ONE (02:44)
[2021-07-20] MEDS ORDERED: methaDONE HCL 40 MG DISPERSABLE TABLET ONE (02:44)
[2021-07-20] MEDS: methaDONE 40 MG, methaDONE 20 MG PO SCH (06:24)
[2021-07-20] MEDS: hydrOXYzine PAMOATE 50 MG CAPSULE (FP) PO PRN ×2 (09:48→21:30)
[2021-07-20] MEDS: PRENATAL VITAMINS W/ FOLIC ACID TABLET (FP) PO SCH (09:48)
[2021-07-20] MEDS: FLUoxetine HCL 20 MG CAPSULE PO SCH (09:48)
[2021-07-20] MEDS: NICOTINE 14 MG/24 HOURS TOPICAL PATCH TD SCH (09:48)
[2021-07-20] MEDS: QUEtiapine FUMARATE 400 MG TABLET PO SCH ×2 (09:48→21:29)
[2021-07-20] MEDS: THIAMINE HCL 100 MG TABLET (FP) PO SCH (21:29)
[2021-07-21] MEDS ORDERED: methaDONE HCL 10 MG TABLET ONE (05:01)
[2021-07-21] MEDS ORDERED: methaDONE HCL 40 MG DISPERSABLE TABLET ONE (05:01)
[2021-07-21] MEDS: methaDONE 40 MG, methaDONE 20 MG PO SCH (06:24)
[2021-07-21] MEDS: NICOTINE 14 MG/24 HOURS TOPICAL PATCH TD SCH (09:55)
[2021-07-21] MEDS: FLUoxetine HCL 20 MG CAPSULE PO SCH (09:55)
[2021-07-21] MEDS: PRENATAL VITAMINS W/ FOLIC ACID TABLET (FP) PO SCH (09:55)
[2021-07-21] MEDS: QUEtiapine FUMARATE 400 MG TABLET PO SCH ×2 (09:56→21:33)
[2021-07-21] MEDS: hydrOXYzine PAMOATE 50 MG CAPSULE (FP) PO PRN (21:33)
[2021-07-21] MEDS: THIAMINE HCL 100 MG TABLET (FP) PO SCH (21:33)
[2021-07-22] MEDS ORDERED: methaDONE 40 MG, methaDONE 20 MG PO SCH (06:00)
[2021-07-22] MEDS ORDERED: methaDONE HCL 10 MG TABLET ONE (06:23)
[2021-07-22] MEDS ORDERED: methaDONE HCL 40 MG DISPERSABLE TABLET ONE (06:24)
[2021-07-22] MEDS: NICOTINE 14 MG/24 HOURS TOPICAL PATCH TD SCH (09:28)
[2021-07-22] MEDS: PRENATAL VITAMINS W/ FOLIC ACID TABLET (FP) PO SCH (09:28)
[2021-07-22] MEDS: QUEtiapine FUMARATE 400 MG TABLET PO SCH ×2 (09:29→21:06)
[2021-07-22] MEDS: FLUoxetine HCL 20 MG CAPSULE PO SCH (09:29)
[2021-07-22] MEDS: THIAMINE HCL 100 MG TABLET (FP) PO SCH (21:06)
[2021-07-22] MEDS: hydrOXYzine PAMOATE 50 MG CAPSULE (FP) PO PRN (21:07)
[2021-07-23 07:19] VITALS: BP 124/84; PULSE 75; TEMP 98.2
[2021-07-23] MEDS ORDERED: methaDONE HCL 10 MG TABLET PO ONE (07:27)
[2021-07-23] MEDS ORDERED: methaDONE 40 MG, methaDONE 20 MG PO ONE (08:15)
[2021-07-23] MEDS ORDERED: methaDONE HCL 40 MG DISPERSABLE TABLET ONE (08:52)
[2021-07-23] MEDS ORDERED: methaDONE HCL 10 MG TABLET ONE (08:52)
[2021-07-23] MEDS: hydrOXYzine PAMOATE 50 MG CAPSULE (FP) PO PRN (09:02)
[2021-07-23] MEDS: FLUoxetine HCL 20 MG CAPSULE PO SCH (09:02)
[2021-07-23] MEDS: PRENATAL VITAMINS W/ FOLIC ACID TABLET (FP) PO SCH (09:02)
[2021-07-23] MEDS: QUEtiapine FUMARATE 400 MG TABLET PO SCH (09:02)
[2021-07-23] MEDS: NICOTINE 14 MG/24 HOURS TOPICAL PATCH TD SCH (09:03)
== END 2021-07-23 09:15 | disposition home or self-care (01) | DRG 895 ==
LOC: YASAS 17:39 → Y5N 23:47
PROVIDERS: ADMIT Allergy & Immunology; ATTEND Allergy & Immunology
PROC: HZ42ZZZ Group Counseling for Substance Abuse Treatment, Cognitive-Behavioral (ICD-10-PCS; principal; 2021-07-12)
DX: F11.20 Opioid dependence, uncomplicated (principal); F14.20 Cocaine dependence, uncomplicated; F13.20 Sedative, hypnotic or anxiolytic dependence, uncomplicated; F20.0 Paranoid schizophrenia; F19.282 Other psychoactive substance dependence with psychoactive substance-induced sleep disorder; F19.280 Other psychoactive substance dependence with psychoactive substance-induced anxiety disorder; I69.854 Hemiplegia and hemiparesis following other cerebrovascular disease affecting left non-dominant side; F10.20 Alcohol dependence, uncomplicated; F17.210 Nicotine dependence, cigarettes, uncomplicated; F19.24 Other psychoactive substance dependence with psychoactive substance-induced mood disorder; F43.10 Post-traumatic stress disorder, unspecified; M54.41 Lumbago with sciatica, right side; G89.29 Other chronic pain; Z86.59 Personal history of other mental and behavioral disorders; Z88.8 Allergy status to other drugs, medicaments and biological substances
CPT/HCPCS: 36415; 80053; 85027; 86780; 93005; 93010; C9803; U0003; U0005

== ENCOUNTER 2023-08-26 12:02 | Inpatient (IN) | payer OTHER ==
[2023-08-26 12:41] VITALS: BMI 27.3
[2023-08-26] MEDS ORDERED: IBUPROFEN 600 MG TABLET (FP) PO PRN (13:55)
[2023-08-26] MEDS ORDERED: NALOXONE HCL 0.4 MG/ML VIAL IM PRN (13:55)
[2023-08-26] MEDS ORDERED: BENZONATATE 200 MG CAPSULE PO PRN (13:55)
[2023-08-26] MEDS ORDERED: METHOCARBAMOL 500 MG TABLET PO PRN (13:55)
[2023-08-26] MEDS ORDERED: NICOTINE POLACRILEX 2 MG LOZENGE BC PRN (13:55)
[2023-08-26] MEDS ORDERED: BENZOCAINE/MENTHOL (CHLORASEPTIC ) LOZENGE MM PRN (13:55)
[2023-08-26] MEDS ORDERED: ONDANSETRON *ODT* 4 MG TABLET SL PRN (13:55)
[2023-08-26] MEDS ORDERED: ACETAMINOPHEN 325 MG TABLET (FP) PO PRN (13:55)
[2023-08-26] MEDS ORDERED: MAGNESIUM HYDROX 2400MG/30ML ORAL SUSPENSION 30 ML CUP PO PRN (13:55)
[2023-08-26] MEDS ORDERED: NALOXONE HCL (KLOXXADO) 8 MG SPRAY NS PRN (13:55)
[2023-08-26] MEDS ORDERED: guaiFENesin 600 MG TABLET.ER (FP) PO PRN (13:55)
[2023-08-26] MEDS ORDERED: POLYETHYLENE GLYCOL (HEALTHYLAX) 3350 17 GM PACKET PO PRN (13:55)
[2023-08-26] MEDS ORDERED: cloNIDine HCL 0.1 MG TABLET PO PRN (13:55)
[2023-08-26] MEDS ORDERED: LOPERAMIDE HCL 2 MG CAPSULE PO PRN (13:55)
[2023-08-26] MEDS ORDERED: IBUPROFEN 400 MG TABLET (FP) PO PRN (13:55)
[2023-08-26] MEDS ORDERED: DICYCLOMINE HCL 10 MG CAPSULE PO PRN (13:55)
[2023-08-26] MEDS ORDERED: hydrOXYzine PAMOATE 25 MG CAPSULE (FP) PO PRN (13:55)
[2023-08-26] MEDS ORDERED: BISMUTH SUBSALICYLATE 524 MG/30 ML PO PRN (13:55)
[2023-08-26] MEDS ORDERED: MAG HYDROX/AL HYDROX/SIMETH 30 ML UNIT-DOSE CUP PO PRN (13:55)
[2023-08-26] MEDS ORDERED: methaDONE HCL 10 MG TABLET (FOR DETOX USE ONLY) ONE (15:26)
[2023-08-26] MEDS: methaDONE HCL 10 MG TABLET (FOR DETOX USE ONLY) PO ONE ×2 (15:30→16:12)
[2023-08-26] MEDS: MELATONIN 5 MG TABLETS PO SCH (22:14)
[2023-08-26] MEDS: THIAMINE HCL 100 MG TABLET (FP) PO SCH (22:14)
[2023-08-27] MEDS: NICOTINE 7 MG/24 HOURS TOPICAL PATCH TD SCH (10:33)
[2023-08-27] MEDS: PRENATAL VITAMINS W/ FOLIC ACID TABLET (FP) PO SCH (10:33)
[2023-08-27] MEDS: risperiDONE 2 MG TABLET PO SCH (10:35)
[2023-08-27] MEDS: QUEtiapine FUMARATE 100 MG TABLET (FP) PO SCH (10:36)
[2023-08-27 11:44] LABS: HEMATOCRIT 39.7 % (35.4-49); HEMOGLOBIN 13.5 GM/dL (11.7-16.9); MCH 30.1 pg (25.7-33.7); MCHC 33.9 g/dl (32.0-35.9); MEAN CELL VOLUME 88.8 fl (80-96); MEAN PLT VOLUME 7.9 fl (7.5-11.1); PLATELET COUNT 297 10^3/uL (134-434); RBC 4.46 M/mm3 (4.00-5.60); RDW 13.6 % (11.9-15.9)
[2023-08-27 11:47] LABS: CHLORIDE 105 mmol/L (98-107); POTASSIUM 4.7 mmol/L (3.5-5.1); SODIUM 140 mmol/L (136-145)
[2023-08-27 11:59] LABS: ALBUMIN 3.4 g/dl (3.4-5.0); CREATININE 1.1 mg/dL (0.55-1.3); GLUCOSE,RANDOM 91 mg/dL (74-106)
[2023-08-27 12:00] LABS: TOT PROT 6.4 g/dl (6.4-8.2)
[2023-08-27 12:01] LABS: BILIRUBIN,TOTAL 0.5 mg/dL (0.2-1)
[2023-08-27 12:02] LABS: ALK PHOS 55 U/L (45-117); ANION GAP 2 mmol/L (4-13); CALCIUM 9.1 mg/dL (8.5-10.1); CO2 33 mmol/L (21-32); SGOT/AST 15 U/L (15-37); SGPT/ALT 18 U/L (13-61)
[2023-08-27] MEDS: QUEtiapine FUMARATE 200 MG TABLET PO SCH (22:23)
[2023-08-28 10:19] VITALS: BP 122/83; PULSE 67; RESP 16; TEMP 98.3
[2023-08-28] MEDS: methaDONE HCL 10 MG TABLET (FOR DETOX USE ONLY) PO ONE (11:23)
[2023-08-30] MEDS ORDERED: methaDONE HCL 10 MG TABLET (FOR DETOX USE ONLY) PO ONE (10:00)
== END 2023-08-28 10:45 | disposition left against medical advice (07) | DRG 894 ==
LOC: YASAS 12:02 → Y6N 14:10
PROVIDERS: ADMIT Allergy & Immunology; ATTEND Surgery
PROC: HZ2ZZZZ Detoxification Services for Substance Abuse Treatment (ICD-10-PCS; principal; 2023-08-26)
DX: F11.23 Opioid dependence with withdrawal (principal); F14.20 Cocaine dependence, uncomplicated; F20.0 Paranoid schizophrenia; F19.280 Other psychoactive substance dependence with psychoactive substance-induced anxiety disorder; F19.282 Other psychoactive substance dependence with psychoactive substance-induced sleep disorder; I69.854 Hemiplegia and hemiparesis following other cerebrovascular disease affecting left non-dominant side; F17.210 Nicotine dependence, cigarettes, uncomplicated; F41.9 Anxiety disorder, unspecified; F32.A Depression, unspecified; F43.10 Post-traumatic stress disorder, unspecified; M54.41 Lumbago with sciatica, right side; G89.29 Other chronic pain; Z88.8 Allergy status to other drugs, medicaments and biological substances
CPT/HCPCS: 36415; 80053; 80305; 80307; 85027; 86780; 93005; 93010